=== PATIENT | female | born 1940 | race Caucasian/White ===

== ENCOUNTER → 2017-04-20 | Outpatient (CLI) | payer MEDICARE, BC ==
[2017-04-20 15:50] LABS: Amorphous Sediment,Urine Rare /hpf; Appearance,Urine Clear (Clear); Bilirubin,Urine Negative (Negative); Glucose,Urine (UA) Negative (Negative); Ketones,Urine Negative (Negative); Leukocyte Esterase,Urine Moderate (Negative); Nitrite,Urine Negative (Negative); PH, Urine 6.5 (5.0-8.0); Particle Count 460; Protein,Urine Negative (Negative); Specific Gravity,Urine 1.014 (1.001-1.035); Squamous Epithelial Cell,Urine 1 /hpf (0-4); UA Billing (MACRO vs. MICRO) MICRO; Urobilinogen,Urine <2.0 mg/dL (<2.0); WBC,Urine 11 /hpf (0-5)
[2017-04-20 15:51] LABS: INR 1.1 (<1.2); Prothrombin Time 10.7 sec (9.0-12.0)
[2017-04-20 20:27] LABS: Gliadin AB IgA, Deaminated NEGATIVE (NEGATIVE); Gliadin AB IgG, Deaminated NEGATIVE (NEGATIVE); Gliadin AB IgG, Unit <0.4 U/mL; Tis Transglutaminase IgA Unit <0.5 AI; Tis Transglutaminase IgG Unit <0.8 U/mL
[2017-04-20 21:16] LABS: Egg White IgE <0.10 kU/L; Peanut IgE <0.10 kU/L; Scallop IgE <0.10 kU/L; Soybean IgE <0.10 kU/L
[2017-04-20 21:17] LABS: Clam IgE <0.10 kU/L
[2017-04-21 11:06] LABS: Protein C (Activity) 110 % (70 - 130)
[2017-04-21 11:07] LABS: Free Protein S Antigen 78 % (50 - 147)
[2017-04-22 14:52] LABS: Prothrombin 20210 G/A Mutation Heterozygous
== END | disposition home or self-care (01) ==
LOC: LABWHC1 15:00
PROVIDERS: ATTEND Internal Medicine Critical Care Medicine
DX: I25.10 Atherosclerotic heart disease of native coronary artery without angina pectoris (principal); N39.0 Urinary tract infection, site not specified; I82.409 Acute embolism and thrombosis of unspecified deep veins of unspecified lower extremity
CPT/HCPCS: 36415; 81001; 81240; 81241; 81291; 82784; 82785; 83516; 85300; 85303; 85306; 85610; 85613; 85730; 86003; 86147; 87086

== ENCOUNTER 2018-03-16 04:32 | Emergency (ER) | payer MEDICARE, BC ==
--- NOTE | 2018-03-16 04:34 | ED ---
General Adult HPI - General Stated complaint: cough, chest/throat burning Time Seen by Provider: 03/16/18 04:34 - History of Present Illness Initial comments: Stacy is a 77-year-old female with past medical history listed below who presents the emergency department today for evaluation of a progressively worsening cough and shortness of breath. Patient reports on Thursday of last week she developed some nasal congestion and on productive cough. She reports over the course of the week she has developed progressively more frequent coughing and yesterday started having a productive cough with associated burning pain in her chest. Patient reports that this is similar to previous episodes of pneumonia or bronchitis. The patient contacted her primary care office to be seen but was advised that if she is having shortness of breath and chest pain she needs to be evaluated in the emergency department. Yesterday patient didn't feel that it was needed to come to the emergency department, however throughout the night she continued to have a cough which kept her from sleeping so this morning she decided to come in for evaluation. Patient reports that her cough is minimally productive, but yesterday it seemed more productive of sputum. Cough is constant, but somewhat relieved by nebulizer treatments which she has used 3 times yesterday. Associated with nausea but no vomiting. Burning pain in her chest but no exertional chest pain or palpitations. Patient denies any fevers but does report that she has felt chilled. She denies any abdominal pain or change in bowel or bladder habits. Does have a history of pneumonia and bronchitis in the past for which she was prescribed a nebulizer. She does not have any history of COPD or chronic lung disease, she does not use oxygen or nebulizer therapies regularly. She denies any exertional chest pain or palpitations, She has no cardiac history. - Related Data Previous Rx's Medication Instructions Recorded Albuterol Nebulized [Ventolin 2.5 mg INHALATION Q4H #30 nebu 03/16/18 Nebulized] predniSONE [Deltasone] 40 mg PO DAILY 5 Days #10 tablet 03/16/18 Allergies Allergy/AdvReac Type Severity Reaction Status Date / Time lactose AdvReac Diarrhea Verified 03/16/18 04:44 lidocaine [From Lidoderm] AdvReac Rash/Hives Verified 03/16/18 04:44 phenazopyridine AdvReac Rash/Hives Verified 03/16/18 04:44 [From Pyridium] Sulfa (Sulfonamide AdvReac Rash/Hives Verified 03/16/18 04:44 Antibiotics) sulfamethoxazole AdvReac Rash/Hives Verified 03/16/18 04:44 [From Bactrim] trimethoprim [From Bactrim] AdvReac Rash/Hives Verified 03/16/18 04:44 Review of Systems ROS Statement: Those systems with pertinent positive or pertinent negative responses have been documented in the HPI. ROS Other: All systems not noted in ROS Statement are negative. General Exam Limitations: no limitations General appearance: alert Head exam: Present: atraumatic, normocephalic Eye exam: Present: PERRL ENT exam: Present: normal exam Neck exam: Present: normal inspection Respiratory exam: Present: wheezes Cardiovascular Exam: Present: regular rate, normal rhythm GI/Abdominal exam: Present: soft. Absent: distended Rectal exam: Present: deferred Extremities exam: Present: normal inspection Back exam: Present: normal inspection Neurological exam: Present: alert, oriented X3 Psychiatric exam: Present: normal affect, normal mood Skin exam: Present: warm, dry Course Vital Signs 03/16/18 03/16/18 03/16/18 04:37 06:00 06:10 Temperature 98.3 F Pulse Rate 71 62 66 Respiratory 20 Rate Blood Pressure 160/88 O2 Sat by Pulse 99 Oximetry 03/16/18 06:42 Temperature 97.0 F L Pulse Rate 74 Respiratory 20 Rate Blood Pressure 174/80 O2 Sat by Pulse 99 Oximetry EKG Findings - EKG Comments: EKG Findings:: EKG at 4:50 AM, rate is 66, rhythm is sinus, NC is 204, QRS 112, QTC 452. No acute ST elevations or depressions. Medical Decision Making - Medical Decision Making Patient was seen and evaluated, patient with recent upper respiratory tract infection with worsening cough and wheezing in all lung stevens No cardiac history, no exertional chest pain, no diaphoresis or lightheadedness Labs and imaging were ordered EKG reveals a sinus rhythm with no acute ST elevations or depressions Labs with mild leukocytosis Troponin negative 6 her no evidence of pneumonia Patient with significant improvement in her symptoms after a DuoNeb treatment. Patient states that the albuterol she has a home in 2016 and she would like refill, she does feel significantly improved after the DuoNeb and would like to be discharged home. However she is concerned that she needs her breathing treatments. I advised her that I will prescribe albuterol for home. In addition I will give her a short burst dose of steroids for bronchitis. Considering the patient's advanced age and relative hypoxia on arrival I did offer the patient observation for [id number] DuoNeb's and steroid therapy. However patient declined stating she feels that being at home is better for her. She doesn't want to be in the hospital around sick people. She does feel comfortable being discharged home as this is been persistent for a number of days and is getting better after the DuoNeb. All questions pertaining to care were answered the best my ability patient was discharged home - Lab Data Result diagrams: 03/16/18 05:13 03/16/18 05:13 Lab Results 03/16/18 03/16/18 03/16/18 Range/Units 05:13 05:13 05:13 WBC 12.5 H (3.8-10.6) k/uL RBC 4.52 (3.80-5.40) m/uL Hgb 14.5 (11.4-16.0) gm/dL Hct 43.2 (34.0-46.0) % MCV 95.5 (80.0-100.0) fL MCH 32.2 (25.0-35.0) pg MCHC 33.7 (31.0-37.0) g/dL RDW 12.0 (11.5-15.5) % Plt Count 323 (150-450) k/uL Neutrophils % 82 % Lymphocytes % 10 % Monocytes % 6 % Eosinophils % 1 % Basophils % 0 % Neutrophils # 10.2 H (1.3-7.7) k/uL Lymphocytes # 1.2 (1.0-4.8) k/uL Monocytes # 0.8 (0-1.0) k/uL Eosinophils # 0.1 (0-0.7) k/uL Basophils # 0.0 (0-0.2) k/uL PT (9.0-12.0) sec INR (<1.2) APTT (22.0-30.0) sec Sodium 137 (137-145) mmol/L Potassium 4.2 (3.5-5.1) mmol/L Chloride 104 (98-107) mmol/L Carbon Dioxide 21 L (22-30) mmol/L Anion Gap 12 mmol/L BUN 11 (7-17) mg/dL Creatinine 0.73 (0.52-1.04) mg/dL Est GFR (CKD-EPI)AfAm >90 (>60 ml/min/1.73 sqM) Est GFR (CKD-EPI)NonAf 81 (>60 ml/min/1.73 sqM) Glucose 92 (74-99) mg/dL Calcium 10.6 H (8.4-10.2) mg/dL Magnesium 1.7 (1.6-2.3) mg/dL Troponin I (0.000-0.034) ng/mL NT-Pro-B Natriuret Pep 145 pg/mL 03/16/18 03/16/18 Range/Units 05:13 05:13 WBC (3.8-10.6) k/uL RBC (3.80-5.40) m/uL Hgb (11.4-16.0) gm/dL Hct (34.0-46.0) % MCV (80.0-100.0) fL MCH (25.0-35.0) pg MCHC (31.0-37.0) g/dL RDW (11.5-15.5) % Plt Count (150-450) k/uL Neutrophils % % Lymphocytes % % Monocytes % % Eosinophils % % Basophils % % Neutrophils # (1.3-7.7) k/uL Lymphocytes # (1.0-4.8) k/uL Monocytes # (0-1.0) k/uL Eosinophils # (0-0.7) k/uL Basophils # (0-0.2) k/uL PT 9.8 (9.0-12.0) sec INR 1.0 (<1.2) APTT 23.0 (22.0-30.0) sec Sodium (137-145) mmol/L Potassium (3.5-5.1) mmol/L Chloride (98-107) mmol/L Carbon Dioxide (22-30) mmol/L Anion Gap mmol/L BUN (7-17) mg/dL Creatinine (0.52-1.04) mg/dL Est GFR (CKD-EPI)AfAm (>60 ml/min/1.73 sqM) Est GFR (CKD-EPI)NonAf (>60 ml/min/1.73 sqM) Glucose (74-99) mg/dL Calcium (8.4-10.2) mg/dL Magnesium (1.6-2.3) mg/dL Troponin I <0.012 (0.000-0.034) ng/mL NT-Pro-B Natriuret Pep pg/mL Disposition Clinical Impression: Bronchitis Disposition: HOME SELF-CARE Condition: Good Instructions: Upper Respiratory Infection (ED) Prescriptions: Albuterol Nebulized [Ventolin Nebulized] 2.5 mg INHALATION Q4H #30 nebu predniSONE [Deltasone] 40 mg PO DAILY 5 Days #10 tablet Is patient prescribed a controlled substance at d/c from ED?: No Referrals: None,Stated [Primary Care Provider] - 1-2 days Time of Disposition: 07:11
[2018-03-16 04:43] VITALS: RESP 20
[2018-03-16] MEDS ORDERED: SODIUM CHLORIDE 0.9% 500 ML IV STA (04:46)
[2018-03-16 05:28] LABS: Basophils % (A) 0 %; Eosinophils # (A) 0.1 k/uL (0-0.7); Eosinophils % (A) 1 %; HCT 43.2 % (34.0-46.0); HGB 14.5 gm/dL (11.4-16.0); Lymphocytes # (A) 1.2 k/uL (1.0-4.8); Lymphocytes % (A) 10 %; MCH 32.2 pg (25.0-35.0); MCHC 33.7 g/dL (31.0-37.0); MCV 95.5 fL (80.0-100.0); Mean Platelet Volume 7.3; Monocytes # (A) 0.8 k/uL (0-1.0); Monocytes % (A) 6 %; Neutrophils # (A) 10.2 k/uL (1.3-7.7); Neutrophils % (A) 82 %; Platelet Count 323 k/uL (150-450); RBC 4.52 m/uL (3.80-5.40); WBC 12.5 k/uL (3.8-10.6)
[2018-03-16 05:36] LABS: Anion Gap 12 mmol/L; Blood Urea Nitrogen 11 mg/dL (7-17); Calcium 10.6 mg/dL (8.4-10.2); Carbon Dioxide 21 mmol/L (22-30); Chloride 104 mmol/L (98-107); Glucose 92 mg/dL (74-99); Magnesium 1.7 mg/dL (1.6-2.3); Potassium 4.2 mmol/L (3.5-5.1); Sodium 137 mmol/L (137-145)
--- NOTE | 2018-03-16 05:37 | XR ---
EXAMINATION TYPE: XR chest 2V DATE OF EXAM: 03/16/2018 COMPARISON: 02/05/2010 HISTORY: Cough TECHNIQUE: Frontal and lateral views of the chest are obtained. FINDINGS: There is no heart failure nor confluent pneumonic infiltrate. Costophrenic angles are slim r. There are chest leads. Thoracic aorta is atheromatous. Bony thorax is intact. IMPRESSION: No active cardiopulmonary disease. No change.
[2018-03-16 05:39] LABS: Prothrombin Time 9.8 sec (9.0-12.0)
[2018-03-16] MEDS ORDERED: IPRATROPIUM-ALBUTEROL 3 ML NEB INHALATION STA (05:52)
[2018-03-16 06:52] VITALS: BP 174/80; PULSE 74; TEMP 97
== END 2018-03-16 07:04 | disposition home or self-care (01) ==
LOC: EC 04:32
DX: J40 Bronchitis, not specified as acute or chronic (principal); D72.829 Elevated white blood cell count, unspecified; Z88.2 Allergy status to sulfonamides; Z88.8 Allergy status to other drugs, medicaments and biological substances; Z91.018 Allergy to other foods
CPT/HCPCS: 36415; 71046; 80048; 83735; 83880; 84484; 85025; 85610; 85730; 93005; 94640; 96360; 99284

== ENCOUNTER 2019-02-09 10:12 | Day surgery (SDC) | payer MEDICARE, BC ==
[2019-02-07 13:30] VITALS: BMI 36.6
[~2019-02-09 10:12] MED LIST: LACTATED RINGERS 1,000 ML IV SCH
[2019-02-09 10:36] VITALS: RESP 16; TEMP 96.8
[2019-02-09] MEDS ORDERED: LIDOCAINE 1% 20 ML VIAL (10MG/ML) FOR IV START INTRADERMA ONE (10:42)
[2019-02-09] MEDS ORDERED: PROPOFOL 10 MG/ML 20 ML VIAL IV ONE (11:24)
--- NOTE | 2019-02-09 11:38 | P.PCN ---
Date of Procedure: 02/09/19 Procedure(s) Performed: BRIEF HISTORY: Patient is a 78-year-old, pleasant, white female, scheduled for an upper endoscopy as a part of evaluation of intermittent dysphagia to solids for the last 1 month duration. She has long-standing history of heartburn and takes Zantac as needed. She is scheduled for an upper endoscopy with possible dilation today. PROCEDURE PERFORMED: Esophagogastroduodenoscopy with biopsy and dilation. PREOPERATIVE DIAGNOSIS: Of long-standing history of GERD/and intermittent d ysphagia to solids of 1 month duration. IV sedation per anesthesia. PROCEDURE: After informed consent was obtained, the patient was brought into the endoscopy unit. IV sedation was administered by Anesthesia under continuous monitoring. Initially the Olympus GIF-140 video endoscope was inserted into the mouth. Esophagus intubated without any difficulty. It was gradually advanced into the stomach and duodenum and carefully examined. The bulb and the second part of the duodenum appeared normal. The scope at this time was withdrawn to the stomach, adequately insufflated with air, and upon careful examination, mucosa of the antrum, had mild gastritis and biopsies were done from this area. The body, cardia and the fundus appeared normal. The scope was then withdrawn into the esophagus. The GE junction was located at 39 cm from the incisors. Small hiatal hernia noted. There was a distal esophageal stricture identified and this was dilated using 12-15 mm TTS balloon in sequential fashion for 30 seconds. Also there was circumferential erythema with linear erosions noted in the distal esophagus with superficial erosions consistent with LA grade C reflux esophagitis. The rest of the esophagus appeared normal and the patient tolerated the procedure well. IMPRESSION: 1. This esophageal stricture status post balloon dilation using 12-15 mm TTS balloon as described above. 2. Small hiatal hernia 3. Mild antral gastritis. 4. Circumferential erythema as well as superficial erosions of the distal esophagus consistent with LA grade C reflux esophagitis RECOMMENDATIONS: The findings of this examination were discussed with the patient as well as her family. She will be started on Prilosec 20 mg twice daily to be taken half hour before breakfast and dinnertime and follow a ntireflux measures. She'll be seen in office in 2 months.. She was advised to remain on clear liquid diet today.
[2019-02-09 12:01] VITALS: BP 151/78; PULSE 65
== END 2019-02-09 12:20 | disposition home or self-care (01) ==
LOC: ORWHC2ENDO 10:12
PROVIDERS: ATTEND Internal Medicine Gastroenterology
DX: K21.0 Gastro-esophageal reflux disease with esophagitis (principal); K22.2 Esophageal obstruction; K29.50 Unspecified chronic gastritis without bleeding; K44.9 Diaphragmatic hernia without obstruction or gangrene; Z88.1 Allergy status to other antibiotic agents; Z88.2 Allergy status to sulfonamides; Z88.8 Allergy status to other drugs, medicaments and biological substances; Z86.718 Personal history of other venous thrombosis and embolism; Z79.01 Long term (current) use of anticoagulants
CPT/HCPCS: 43239; 43249; 88305

== ENCOUNTER → 2019-04-04 | Outpatient (CLI) | payer MEDICARE, BC ==
[2019-04-04 13:27] LABS: Appearance,Urine Cloudy (Clear); Bacteria,Urine Many /hpf; Bilirubin,Urine Negative (Negative); Blood,Urine Trace (Negative); Color,Urine Yellow; Glucose,Urine (UA) Negative (Negative); Ketones,Urine Negative (Negative); Leukocyte Esterase,Urine Large (Negative); Nitrite,Urine Positive (Negative); PH, Urine 6.5 (5.0-8.0); Protein,Urine Trace (Negative); Specific Gravity,Urine 1.018 (1.001-1.035); Squamous Epithelial Cell,Urine 1 /hpf (0-4); Urobilinogen,Urine <2.0 mg/dL (<2.0); WBC,Urine >182 /hpf (0-5)
== END | disposition home or self-care (01) ==
LOC: LABWHC1 11:23
PROVIDERS: ATTEND Internal Medicine Critical Care Medicine
DX: R35.0 Frequency of micturition (principal); R30.0 Dysuria
CPT/HCPCS: 81001; 87077; 87086; 87186; 96372; 99214

== ENCOUNTER → 2019-07-11 | Outpatient (CLI) | payer MEDICARE, BC ==
[2019-07-11 11:14] LABS: Basophils % (A) 0 %; Eosinophils # (A) 0.2 k/uL (0-0.7); Eosinophils % (A) 2 %; HCT 37.3 % (34.0-46.0); HGB 12.7 gm/dL (11.4-16.0); Lymphocytes # (A) 1.8 k/uL (1.0-4.8); Lymphocytes % (A) 22 %; MCH 34.8 pg (25.0-35.0); MCHC 33.9 g/dL (31.0-37.0); MCV 102.4 fL (80.0-100.0); Macrocytosis Slight; Mean Platelet Volume 6.8; Monocytes # (A) 0.4 k/uL (0-1.0); Monocytes % (A) 5 %; Neutrophils # (A) 5.6 k/uL (1.3-7.7); Neutrophils % (A) 69 %; Platelet Count 217 k/uL (150-450); RBC 3.65 m/uL (3.80-5.40); RDW 12.3 % (11.5-15.5); WBC 8.1 k/uL (3.8-10.6)
[2019-07-11 11:19] LABS: Potassium 4.5 mmol/L (3.5-5.1)
== END | disposition home or self-care (01) ==
LOC: LABPAT 09:43
PROVIDERS: ATTEND Surgery
DX: Z01.812 Encounter for preprocedural laboratory examination (principal); I74.5 Embolism and thrombosis of iliac artery
CPT/HCPCS: 36415; 80051; 82565; 84520; 85025

== ENCOUNTER → 2019-07-12 | Day surgery (SDC) | payer MEDICARE, BC ==
[2019-07-08 13:06] VITALS: BMI 33.5
[~2019-07-12] MED LIST changes: +ACETAMINOPHEN TAB 500 MG TAB PO PRN; +ALPRAZolam 0.25 MG TAB PO PRN; +ALPRAZolam 0.5 MG TAB PO PRN; +ASPIRIN 325 MG TAB PO STA; +CHLOROPROCAINE 3% 30 MG/ML 20 ML VIAL CAUDALBLCK PRN; +CHLOROPROCAINE 3% 30 MG/ML 20 ML VIAL MISCELLANE ONE; +IOPAMIDOL-250 100ML BTL INTRAARTER ONE; -LACTATED RINGERS 1,000 ML IV SCH; +MIDAZOLAM 2 MG/2 ML VIAL IV ONE; +SODIUM CHLORIDE 0.9% 1,000 ML IV ONE; +SODIUM CHLORIDE 0.9% 1,000 ML in EMPTY BAG 1 BAG IV ONE; +ZOLPIDEM 5 MG TAB PO PRN; +fentaNYL (PF) 50 MCG/ML 2 ML AMP IV ONE
[2019-07-12 08:26] VITALS: RESP 16; TEMP 97.7
--- NOTE | 2019-07-12 10:05 | P.OP ---
Date of Procedure: 07/12/19 Description of Procedure: Preoperative diagnosis: Severe claudication right lower extremity, second toe wound Postoperative diagnosis: Same Procedure: Ultrasound-guided left common femoral artery access, aortogram with runoffs, 17 minutes of moderate conscious sedation Surgeon: Kareen Hicks D.O. EBL: Minimal Drains: None Complications: none Condition: []Stable to recovery Operative indication and findings: the patient is a 79-year-old female who has been having increasing right lower extremity pain when ambulating. She can walk about a block prior to her leg pain. She is able to stop and then it improved. She also has a wound on her second toe from pressure from her great toe, this is going on for approximately 1 year without any healing. She had ankle- brachial indices outpatient on the right measured 0.49 and noncompressible on the left Procedure in detail: [ The patient was taken to the operative suite and placed in supine position the bilateral groins were prepped and draped in usual sterile fashion. A procedural timeout was performed, all parties are in agreement. Was Utilized to the Left Common Femoral Artery Was Identified. The Skin Overlying Was Anesthetized with Local. The ultrasound was utilized and a micropuncture access needle cannulated the common femoral artery. Seldinger technique was utilized to place a 5- [place] Island[place] sheath. A wire and pigtail catheter were placed. An aortogram was performed. Bilateral lower extremity runoffs were performed. The wires and catheters were removed. The sheath was removed and pressure was held until hemostasis was adequate. The aorta was normal course and caliber. Solitary renal arteries bilaterally the bilateral iliac arteries are patent without any evidence of significant disease. On the right the common, internal and external iliac arteries are patent without significant disease. The common femoral, deep femoral and superficial femoral arteries are patent at their takeoff. At the level of the abductor canal there is significant greater than 80% narrowing in multiple areas there is three-vessel runoff below the knee although diminutive On the left the common, internal, next sternal iliac arteries are patent without evidence of significant disease. The common femoral, deep femoral and superficial femoral artery are patent without significant disease. There are multiple areas of mild to moderate stenosis of the course of the superficial femoral artery. The ET is occluded shortly after its takeoff but then reconstituted via collaterals. The peroneal and posterior tibial arteries are patent. Plan - Discharge Summary Discharge Rx Participant: Yes New Discharge Prescriptions: No Action ALPRAZolam [Xanax] 0.5 mg PO TID PRN PRN Reason: Anxiety HYDROcodone/APAP 7.5-325MG [[place] 7.5-325] 1 tab PO Q6HR PRN PRN Reason: Pain Ranitidine HCl [Zantac] 150 mg PO DAILY Diphenox-Atrop 2.5-0.025 mg [Lomotil] 1 tab PO BID Amitriptyline HCl 50 mg PO HS PRN PRN Reason: Anxiety Rivaroxaban [Xarelto] 20 mg PO 1700 Cranberry Fruit Extract [Cranberry] 450 mg PO BID Omeprazole [PriLOSEC] 20 mg PO AC-BRKFST Atorvastatin [Lipitor] 40 mg PO HS Aspirin 81 mg PO ONCE Discharge Medication List ALPRAZolam [Xanax] 0.5 mg PO TID PRN 09/23/18 [History] Amitriptyline HCl 50 mg PO HS PRN 09/23/18 [History] Diphenox-Atrop 2.5-0.025 mg [Lomotil] 1 tab PO BID 09/23/18 [History] HYDROcodone/APAP 7.5-325MG [[place] 7.5-325] 1 tab PO Q6HR PRN 09/23/18 [History] Ranitidine HCl [Zantac] 150 mg PO DAILY 09/23/18 [History] Rivaroxaban [Xarelto] 20 mg PO 1700 09/23/18 [History] Cranberry Fruit Extract [Cranberry] 450 mg PO BID 02/07/19 [History] Atorvastatin [Lipitor] 40 mg PO HS 07/08/19 [History] Omeprazole [PriLOSEC] 20 mg PO AC-BRKFST 07/08/19 [History] Aspirin 81 mg PO ONCE 07/12/19 [History]
--- NOTE | 2019-07-12 11:27 | IR ---
Fluoroscopy HISTORY: Pain in right leg 0.4 minutes fluoroscopy time supplied to the referring clinician. 58 intraoperative C-arm images doc ument the procedure. See dictated report from vascular surgery.
[2019-07-12 15:37] VITALS: BP 148/68
[2019-07-12 16:16] VITALS: PULSE 72
== END ==
LOC: CATHCVL 07:48
PROVIDERS: ATTEND Surgery
DX: I70.213 Atherosclerosis of native arteries of extremities with intermittent claudication, bilateral legs (principal); Z79.01 Long term (current) use of anticoagulants; Z79.82 Long term (current) use of aspirin; Z79.899 Other long term (current) drug therapy; Z88.2 Allergy status to sulfonamides; Z88.8 Allergy status to other drugs, medicaments and biological substances; Z88.1 Allergy status to other antibiotic agents; Z91.011 Allergy to milk products; Z90.49 Acquired absence of other specified parts of digestive tract; Z82.49 Family history of ischemic heart disease and other diseases of the circulatory system; Z83.511 Family history of glaucoma; Z81.8 Family history of other mental and behavioral disorders; Z85.828 Personal history of other malignant neoplasm of skin; D68.59 Other primary thrombophilia
CPT/HCPCS: 36200; 75625; 75716; 76937; C1894; C1769 ×4; J2400; J2250; J3010; Q9966

== ENCOUNTER → 2019-08-08 | Outpatient (CLI) | payer MEDICARE, BC ==
--- NOTE | 2019-08-08 09:07 | CT ---
EXAMINATION TYPE: CT angio neck DATE OF EXAM: 08/08/2019 COMPARISON: None HISTORY: Carotid Stenosis CT DLP: 246.3 mGycm CONTRAST: CTA cervical carotids is performed and with IV Contrast, patient injected with 65 mL of Isovue 370. Contrast CTA of the cervical carotids was performed 3-D reconstruction imaging obtained at a separate workstation. Right carotid system: Mild plaque is seen of the right common carotid artery. There is mild plaque a lso noted at the carotid bulb. Moderate calcified plaque at the proximal right ICA resulting in elisa nal narrowing of less than 50%. ECA is patent. Right vertebral artery appears unremarkable. Note is made of retropharyngeal course of right internal carotid artery Left carotid system: Mild plaque is seen of the left common carotid artery. There is moderate to sev ere plaque also noted at the carotid bulb with luminal narrowing estimated at 80%. Additional calcifi c plaque proximal left ICA resulting in approximately 50% diameter reduction. ECA is patent. Left will tebral artery appears unremarkable. IMPRESSION: 1. Estimated diameter reduction Right ICA less than 50% 2. Estimated diameter reduction Left ICA approximately 80%
== END | disposition home or self-care (01) ==
LOC: RADCTMAIN 07:31
PROVIDERS: ATTEND Surgery
DX: I65.29 Occlusion and stenosis of unspecified carotid artery (principal)
CPT/HCPCS: 82565; 84520; 70498; 36415; Q9967

== ENCOUNTER → 2019-09-09 | Outpatient (CLI) | payer MEDICARE, BC ==
[2019-09-09 09:55] LABS: Basophils % (A) 0 %; Eosinophils # (A) 0.6 k/uL (0-0.7); Eosinophils % (A) 6 %; HCT 42.5 % (34.0-46.0); HGB 13.3 gm/dL (11.4-16.0); Lymphocytes # (A) 1.5 k/uL (1.0-4.8); Lymphocytes % (A) 16 %; MCH 32.4 pg (25.0-35.0); MCHC 31.4 g/dL (31.0-37.0); Macrocytosis Slight; Mean Platelet Volume 7.8; Monocytes # (A) 0.5 k/uL (0-1.0); Monocytes % (A) 5 %; Neutrophils # (A) 6.6 k/uL (1.3-7.7); Neutrophils % (A) 71 %; Platelet Count 270 k/uL (150-450); RBC 4.12 m/uL (3.80-5.40); RDW 12.1 % (11.5-15.5); WBC 9.3 k/uL (3.8-10.6)
[2019-09-09 10:02] LABS: African American GFR (CKD) >90 (>60 ml/min/1.73 sqM); Anion Gap 6 mmol/L; Blood Urea Nitrogen 27 mg/dL (7-17); Carbon Dioxide 29 mmol/L (22-30); Chloride 107 mmol/L (98-107); Non-African American GFR(CKD) 82 (>60 ml/min/1.73 sqM); Potassium 4.6 mmol/L (3.5-5.1); Sodium 142 mmol/L (137-145)
[2019-09-09 13:18] LABS: Appearance,Urine Clear (Clear); Bilirubin,Urine Negative (Negative); Blood,Urine Negative (Negative); Color,Urine Light Yellow; Glucose,Urine (UA) Negative (Negative); Ketones,Urine Negative (Negative); Leukocyte Esterase,Urine Negative (Negative); Nitrite,Urine Negative (Negative); Protein,Urine Negative (Negative); Specific Gravity,Urine 1.011 (1.001-1.035); Urobilinogen,Urine <2.0 mg/dL (<2.0)
== END | disposition home or self-care (01) ==
LOC: LABPAT 08:52
PROVIDERS: ATTEND Surgery
DX: Z01.812 Encounter for preprocedural laboratory examination (principal); I65.22 Occlusion and stenosis of left carotid artery
CPT/HCPCS: 36415; 80051; 81003; 82565; 84520; 85025; 86850; 86900; 86901

== ENCOUNTER 2019-09-20 07:02 | Inpatient (IN) | payer MEDICARE, BC ==
[2019-09-12 16:50] VITALS: BMI 30.3
[~2019-09-20 07:02] MED LIST changes: -ACETAMINOPHEN TAB 500 MG TAB PO PRN; -ALPRAZolam 0.25 MG TAB PO PRN; -ALPRAZolam 0.5 MG TAB PO PRN; -ASPIRIN 325 MG TAB PO STA; -CHLOROPROCAINE 3% 30 MG/ML 20 ML VIAL CAUDALBLCK PRN; -CHLOROPROCAINE 3% 30 MG/ML 20 ML VIAL MISCELLANE ONE; +CLINDAMYCIN 900 MG in DEXTROSE 5% IN WATER 50 ML IVPB ONE; +DEXAMETHASONE SOD PHOSPHATE 10 MG/ML 1 ML VIAL IV ONE; -IOPAMIDOL-250 100ML BTL INTRAARTER ONE; +LIDOCAINE 1% 20 ML VIAL (10MG/ML) FOR IV START INTRADERMA PRN; -MIDAZOLAM 2 MG/2 ML VIAL IV ONE; +MORPHINE SULFATE 2 MG/ML SYRINGE IV PRN; +ONDANSETRON 4 MG/2 ML VIAL IVP ONE; -SODIUM CHLORIDE 0.9% 1,000 ML IV ONE; -SODIUM CHLORIDE 0.9% 1,000 ML in EMPTY BAG 1 BAG IV ONE; -ZOLPIDEM 5 MG TAB PO PRN; -fentaNYL (PF) 50 MCG/ML 2 ML AMP IV ONE
[2019-09-20] MEDS: LACTATED RINGERS 1,000 ML IV SCH ×2 (08:13→09:09)
[2019-09-20] MEDS ORDERED: SUCCINYLCHOLINE CHLORIDE 100 MG/5 ML SYR IV ONE (09:05)
[2019-09-20] MEDS ORDERED: LABETALOL 5 MG/ML VIAL MDV ONE (09:05)
[2019-09-20] MEDS ORDERED: fentaNYL (PF) 50 MCG/ML 2 ML AMP ONE (09:05)
[2019-09-20] MEDS ORDERED: METOPROLOL TARTRATE 5 MG/5 ML VIAL IVP ONE (09:05)
[2019-09-20] MEDS ORDERED: PROPOFOL 10 MG/ML 20 ML VIAL IV ONE (09:05)
[2019-09-20] MEDS ORDERED: PHENYLEPHRINE-0.9% NACL SYG 1 MG/10 ML SYRINGE ONE (09:05)
[2019-09-20] MEDS ORDERED: HEPARIN SODIUM,PORCINE 10,000 UNIT/ML 1 ML VIAL ONE (09:05)
[2019-09-20] MEDS ORDERED: PROTAMINE SULFATE 10 MG/ML 5 ML VIAL IV ONE (09:05)
[2019-09-20] MEDS ORDERED: MIDAZOLAM 2 MG/2 ML VIAL ONE (09:05)
[2019-09-20] MEDS ORDERED: ROCURONIUM BROMIDE 10 MG/ML 10 ML VIAL IV ONE (09:05)
[2019-09-20] MEDS ORDERED: ePHEDrine SULFATE/0.9% NACL/PF 50 MG/5 ML SYRINGE IV ONE (09:05)
[2019-09-20] MEDS ORDERED: THROMBIN (BOVINE) 5,000 UNIT VIAL TOPICAL ONE (09:49)
[2019-09-20] MEDS ORDERED: HEPARIN SODIUM (1,000 UNIT/ML) 2,000 UNIT in SODIUM CHLORIDE 0.9% 1,000 ML IRRIGATION ONE (09:50)
[2019-09-20] MEDS ORDERED: GELATIN SPONGE,ABSORB (LARGE) 1 EACH SPONGE TOPICAL ONE (11:18)
[2019-09-20] MEDS ORDERED: TRIMETHOBENZAMIDE 100 MG/ML 2 ML VIAL IM PRN (11:44)
[2019-09-20] MEDS ORDERED: MORPHINE SULFATE 2 MG/ML SYRINGE IVP PRN (11:44)
[2019-09-20] MEDS ORDERED: MAG HYDROX/AL HYDROX/SIMETH 30 ML CUP PO PRN (11:44)
--- NOTE | 2019-09-20 11:54 | P.OP ---
Date of Procedure: 09/20/19 Description of Procedure: Date of Procedure: [09/20/2019] Preoperative Diagnosis: [Left] Internal carotid artery stenosis Postoperative Diagnosis: Same Procedure(s) Performed: Left[] carotid endarterectomy with patch angioplasty Anesthesia: WERNER Surgeon: Kareen Hicks DO Estimated Blood Loss (ml): [75 mL] IV Fluids: [See records] Urine Output: [See anesthesia notes] Specimen: [Left carotid plaque] Condition: stable Disposition: PACU Indications for Procedure: [The patient is a 79 old female with high-grade left ICA stenosis and some intermittent weakness and numbness to her right lower extremity. She initially was planned to undergo a TCAR but could not tolerate dual antiplatelet therapy required. She has been maintained on aspirin. Risks and benefits of going forward with a carotid endarterectomy were discussed with the patient. She seemingly understood and was willing to proceed.] Description of Procedure: After written informed consent was obtained the patient all risks benefits and competitions were described the patient is brought to the operative suite and laid in a supine position. The area of the neck was prepped and draped in usual sterile fashion after appropriate anesthetic was performed per the anesthesiologist. A timeout was performed in normal fashion antibiotics were administered prior to incision. An oblique incision was then created just anterior to the sternocleidomastoid musculature with a 10 blade scalpel and dissection was carried down to the carotid sheath. The carotid sheath was then entered after facial vein was located and suture ligated in normal fashion. The common carotid, internal carotid, external carotid and superior thyroid arteries were located and dissected free in a meticulous fashion circumferentially and controlled with vessel loops. Attention was then placed to locating the vagus nerve as well as hypoglossal nerve which were both spared. Once controlled patient was administered heparin and followed with ACTs for appropriate heparinization. Once ACT was above 200 the proximal and distal aspects of the dissection were th en controlled with vascular clamps. Arteriotomy was then created with 11 blade scalpel and extended with Gabriel scissors. Utilizing pressure tubing stump pressures were obtained and were [54 mmHg]. No shunt was required and endarterectomy was then performed with a [place] and elevator. The plaque was then feathered at the distal aspect and the internal carotid artery and removed. The area was copiously irrigated with heparinized saline and all free debris was removed. A 7-0 Prolene suture was then placed to tack the distal aspect of the dissection at the internal carotid artery. A 0.8 x 8 cm bovine pericardial patch was then chosen and patch angioplasty was performed with 6-0 Prolene suture in a running fashion. Prior to last sutures being placed the inflow was released flushing any free debris out of the patch. This was reclamped and the internal carotid artery was released revealing good brisk flow and was once again reclamped. The external carotid and superior thyroid artery were then released followed by the common carotid artery to allow any free debris to be flushed into the external system. Final sutures were placed and secured. Internal carotid artery control was then released. Good pulsatile flow was noted through the patch and a Doppler was utilized demonstrating good brisk flow into the internal, external carotid arteries without any signs of obstruction. Hemostasis was then assured with [thrombin and Gelfoam]. A 10-[place] DAYNA drain was then placed in normal fashion and secured with 3-0 nylon suture. The incision was then closed in a multilayer fashion after hemostasis was assured. The skin was then cleansed and dressings were placed. Patient tolerated the procedure well and was following commands and moving all extremities. Patient was then sent to PACU for recovery.
[2019-09-20] MEDS ORDERED: PHENYLEPHRINE 40 MG in SODIUM CHLORIDE 0.9% 250 ML IV SCH (12:30)
[2019-09-20] MEDS ORDERED: ACETAMINOPHEN IV (For NPO) 1,000 MG/100 ML VIAL IVPB ONE (12:46)
[2019-09-20 13:54] LABS: Glucose,Whole Blood 129 mg/dL (75-99)
[2019-09-20] MEDS: SODIUM CHLORIDE 0.9% 1,000 ML IV SCH (14:40)
--- NOTE | 2019-09-20 15:32 | P.CNPUL ---
<Kisha Jaquez M - Last Filed: 09/20/19 14:59> History of Present Illness Consult date: 09/20/19 Requesting physician: Kareen Hicks Reason for consult: other Chief complaint: Dizziness, falls, left carotid stenosis History of present illness: 79-year-old white female patient follows with Dr. 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 She was also experiencing cold sensation in her right foot, and developed a small wound on the right second toe that was poorly healing, she was seen by vascular surgeon and was found to have peripheral arterial disease. In the last several weeks patient has also been experiencing increased dizziness, and falls. CT angios of the neck was completed showing right ICA calcified plaque of 50%, and estimated diameter reduction of the left ICA approximately 80%. Patient was scheduled for elective left carotid endarterectomy on 09/12/[address] Hicks. Patient tolerated procedure well, she is being seen in the postoperative period in the intensive care unit, she is resting comfortably in bed, does have a mild headache in her left posterior neck area, and there is a mild facial weakness, involving left corner of her mouth, CT surgery is aware, left neck incision is covered with a surgical dressing, DAYNA drain is in place compressed and draining minimal amount of serosanguineous output. Hemodynamically patient is stable. She is on 2 L of oxygen with a pulse ox of 96%, afebrile, sinus mechanism with a rate of 96 BPM. Review of Systems All systems: negative Constitutional: Denies chills, Denies fever Eyes: denies blurred vision, denies pain Ears, nose, mouth and throat: Denies headache, Denies sore throat Cardiovascular: Denies chest pain, Denies shortness of breath Respiratory: Denies cough Gastrointestinal: Denies abdominal pain, Denies diarrhea, Denies nausea, Denies vomiting Genitourinary: Denies dysuria, Denies hematuria Musculoskeletal: Denies myalgias Integumentary: Denies pruritus, Denies rash Neurological: Reports paresthesias, Denies numbness, Denies weakness Psychiatric: Denies anxiety, Denies depression Endocrine: Denies fatigue, Denies weight change Past Medical History Past Medical History: Blood Disorder, Cancer, GERD/Reflux, GI Bleed, Memory Impairment, Osteoarthritis (OA), Vascular Disorder Additional Past Medical History / Comment(s): Scoliosis, IBS, varicose veins, poor circulation rt leg, gets numbness in rt foot/leg, "MTHFR, PROTHROMBIN, CINCALATIRS", having dizzy spells and balance problems, falling often. Recent skin CA exc lip. History of Any Multi-Drug Resistant Organisms: None Reported Past Surgical History: Appendectomy, Cholecystectomy, Tonsillectomy Additional Past Surgical History / Comment(s): Surgery for bleeding ulcers 2009, Angiogram Past Anesthesia/Blood Transfusion Reactions: No Reported Reaction Smoking Status: Never smoker - Past Family History Daughter(s) Family Medical History: Cancer Father Brother(s) Family Medical History: Cancer Medications and Allergies Home Medications Medication Instructions Recorded Confirmed Type ALPRAZolam [Xanax] 0.5 mg PO HS PRN 09/23/18 09/12/19 History Amitriptyline HCl 50 mg PO HS PRN 09/23/18 09/12/19 History HYDROcodone/APAP 7.5-325MG [[place] 1 tab PO Q6HR PRN 09/23/18 09/12/19 History 7.5-325] Ranitidine HCl [Zantac] 150 mg PO DAILY PRN 09/23/18 09/12/19 History Rivaroxaban [Xarelto] 20 mg PO 1700 09/23/18 09/12/19 History Cranberry Fruit Extract [Cranberry] 450 mg PO BID 02/07/19 09/12/19 History Atorvastatin [Lipitor] 40 mg PO HS 07/08/19 09/12/19 History Omeprazole [PriLOSEC] 20 mg PO AC-BRKFST 07/08/19 09/12/19 History Aspirin 81 mg PO DAILY 07/12/19 09/12/19 History amLODIPine [Norvasc] 5 mg PO DAILY 09/12/19 09/12/19 History Allergies Allergy/AdvReac Type Severity Reaction Status Date / Time cephalexin Allergy Rash/Hives, Verified 09/20/19 07:56 stomach upset levofloxacin Allergy Anaphylaxis Verified 09/20/19 07:56 prednisone Allergy Anaphylaxis Verified 09/20/19 07:56 trimethoprim [From Bactrim] Allergy Rash/Hives Verified 09/20/19 07:56 lactose AdvReac Diarrhea Verified 09/20/19 07:56 lidocaine [From Lidoderm] AdvReac Rash/Hives Verified 09/20/19 07:56 phenazopyridine AdvReac Rash/Hives Verified 09/20/19 07:56 [From Pyridium] Sulfa (Sulfonamide AdvReac Rash/Hives Verified 09/20/19 07:56 Antibiotics) sulfamethoxazole AdvReac Rash/Hives Verified 09/20/19 07:56 [From Bactrim] Physical Exam Vitals: Vital Signs Temp Pulse Pulse Pulse Resp BP BP 09/20/19 14:40 58 L 14 09/20/19 14:30 62 18 09/20/19 14:20 54 L 16 09/20/19 14:10 57 L 16 09/20/19 14:00 99 141/52 09/20/19 13:50 99 16 09/20/19 13:45 97.5 F L 58 L 16 09/20/19 13:24 56 L 16 109/56 09/20/19 13:17 55 L 16 162/61 09/20/19 13:03 61 14 100/52 09/20/19 12:45 60 16 114/58 09/20/19 12:35 60 16 104/55 09/20/19 12:20 60 16 106/51 09/20/19 12:05 62 16 110/55 09/20/19 11:50 97.1 F L 62 16 111/54 09/20/19 07:52 98.2 F 92 16 167/82 BP Pulse Ox 09/20/19 14:40 97 09/20/19 14:30 96 09/20/19 14:20 95 09/20/19 14:10 96 09/20/19 14:00 96 09/20/19 13:50 96 09/20/19 13:45 155/69 09/20/19 13:24 121/38 97 09/20/19 13:17 123/39 96 09/20/19 13:03 108/35 94 L 09/20/19 12:45 110/36 96 09/20/19 12:35 108/44 96 09/20/19 12:20 114/42 96 09/20/19 12:05 115/46 97 09/20/19 11:50 116/36 96 09/20/19 07:52 100 Intake and Output 09/19/19 09/20/19 09/20/19 22:59 06:59 14:59 Intake Total 979 Output Total 445 Balance 534 Intake: IV 979 Lactated Ringers 1,000 ml 20 @ 20 mls/hr IV .Q24H [facility] Rx#:[id number] Output: Urine 430 Estimated Blood Loss 15 Other: Weight 70.5 kg ABP, PAP, CO, CI - Last 8 Hours Arterial Blood Pressure 135/49 Arterial Blood Pressure 135/47 Arterial Blood Pressure 131/46 Arterial Blood Pressure 140/48 Arterial Blood Pressure 159/55 GENERAL EXAM: Alert, very pleasant, 79-year-old white female, in 2 L of oxygen with pulse ox of 96%, comfortable in no apparent distress. HEAD: Normocephalic/atraumatic. EYES: Normal reaction of pupils, equal size. Conjunctiva pink, sclera white. NOSE: Clear with pink turbinates. THROAT: No erythema or exudates. NECK: No masses, no JVD, no thyroid enlargement, no adenopathy. Left neck incision is clean dry and intact, with a surgical dressing, trachea midline, no hematoma, incision is soft CHEST: No chest wall deformity. Symmetrical expansion. LUNGS: Equal air entry with no crackles, wheeze, rhonchi or dullness. CVS: Regular rate and rhythm, normal S1 and S2, no gallops, no murmurs, no rubs ABDOMEN: Soft, nontender. No hepatosplenomegaly, normal bowel sounds, no guarding or rigidity. EXTREMITIES: No clubbing, no edema, no cyanosis, 2+ pulses and upper and lower extremities. MUSCULOSKELETAL: Muscle strength and tone normal. SPINE: No scoliosis or deformity SKIN: No rashes CENTRAL NERVOUS SYSTEM: Alert and oriented -3. Slight left corner of mouth droop. No focal deficits, tone is normal in all 4 extremities. PSYCHIATRIC: Alert and oriented -3. Appropriate affect. Intact judgment and insight. Results - Laboratory Findings Abnormal lab findings: Abnormal Labs 09/20/19 13:53 POC Glucose (mg/dL) 129 H Assessment and Plan Plan: Assessment: #1. Left total carotid artery stenosis of 80%, status post left carotid endarterectomy and patch angioplasty, postop day 0 #2. Peripheral arterial disease #3. History of recent falls and dizziness #4. History of hypertension #5. History of hypercoagulable state, MTHFR gene mutation, on the Route toe #6. Previous history of pulmonary embolism and DVT #7. Anxiety #8. Osteoarthritis #9. Irritable bowel syndrome #10. Lifetime nonsmoker Plan: Continue close hemodynamic monitoring, continue frequent neurologic assessments. Hemodynamically patient is stable, she is complaining of some mild neck pain. Antibiotics GI and DVT prophylaxis per CT surgery. Continue IV fluids, patient is tolerating clear liquids, advance as tolerated, repeat blood work in the morning, we'll continue to closely follow I performed a history & physical examination of the patient and discussed their management with my nurse practitioner, Kisha Jaquez. I reviewed the nurse practitioner's note and agree with the documented findings and plan of care. Lung sounds are positive for clear breath sounds. The findings and the impression was discussed with the patient. I attest to the documentation by the nurse practitioner. Time with Patient: Greater than 30 <Sara Ramos - Last Filed: 09/20/19 19:02> Physical Exam Vitals: Vital Signs Temp Pulse Pulse Pulse Resp BP BP 09/20/19 19:00 52 L 14 09/20/19 18:50 54 L 15 09/20/19 18:40 58 L 20 09/20/19 18:30 56 L 22 09/20/19 18:20 59 L 22 09/20/19 18:10 54 L 17 09/20/19 18:00 59 L 20 09/20/19 17:50 58 L 14 09/20/19 17:40 56 L 18 09/20/19 17:30 57 L 27 H 09/20/19 17:20 58 L 18 09/20/19 17:10 57 L 29 H 09/20/19 17:00 51 L 16 09/20/19 16:50 51 L 16 09/20/19 16:40 51 L 17 09/20/19 16:30 48 L 18 09/20/19 16:20 50 L 20 09/20/19 16:10 51 L 11 L 162/66 09/20/19 16:00 97.3 F L 56 L 20 09/20/19 15:50 50 L 16 09/20/19 15:40 50 L 14 09/20/19 15:30 53 L 16 09/20/19 15:20 53 L 18 09/20/19 15:10 51 L 16 09/20/19 15:00 56 L 21 09/20/19 14:50 56 L 20 09/20/19 14:40 58 L 14 09/20/19 14:30 62 18 09/20/19 14:20 54 L 16 09/20/19 14:10 57 L 16 09/20/19 14:00 99 141/52 09/20/19 13:50 99 16 09/20/19 13:45 97.5 F L 58 L 16 09/20/19 13:24 56 L 16 109/56 09/20/19 13:17 55 L 16 162/61 09/20/19 13:03 61 14 100/52 09/20/19 12:45 60 16 114/58 09/20/19 12:35 60 16 104/55 09/20/19 12:20 60 16 106/51 09/20/19 12:05 62 16 110/55 09/20/19 11:50 97.1 F L 62 16 111/54 09/20/19 07:52 98.2 F 92 16 167/82 BP Pulse Ox 09/20/19 19:00 96 09/20/19 18:50 96 09/20/19 18:40 96 09/20/19 18:30 96 09/20/19 18:20 96 09/20/19 18:10 96 09/20/19 18:00 96 09/20/19 17:50 97 09/20/19 17:40 97 09/20/19 17:30 96 09/20/19 17:20 97 09/20/19 17:10 96 09/20/19 17:00 97 09/20/19 16:50 97 09/20/19 16:40 97 09/20/19 16:30 97 09/20/19 16:20 96 09/20/19 16:10 96 09/20/19 16:00 96 09/20/19 15:50 97 09/20/19 15:40 97 09/20/19 15:30 97 09/20/19 15:20 97 09/20/19 15:10 98 09/20/19 15:00 97 09/20/19 14:50 97 09/20/19 14:40 97 09/20/19 14:30 96 09/20/19 14:20 95 09/20/19 14:10 96 09/20/19 14:00 96 09/20/19 13:50 96 09/20/19 13:45 155/69 09/20/19 13:24 121/38 97 09/20/19 13:17 123/39 96 09/20/19 13:03 108/35 94 L 09/20/19 12:45 110/36 96 09/20/19 12:35 108/44 96 09/20/19 12:20 114/42 96 09/20/19 12:05 115/46 97 09/20/19 11:50 116/36 96 09/20/19 07:52 100 Intake and Output 09/20/19 09/20/19 09/20/19 06:59 14:59 22:59 Intake Total 979 380 Output Total 445 190 Balance 534 190 Intake: IV 979 380 Lactated Ringers 1,000 ml 20 80 @ 20 mls/hr IV .Q24H [facility] Rx#:[id number] Sodium Chloride 0.9% 1, 300 000 ml @ 75 mls/hr IV . [id number] [facility] Rx#:[id number] Output: Urine 430 190 Estimated Blood Loss 15 Other: Voiding Method Indwelling Catheter Weight 70.5 kg ABP, PAP, CO, CI - Last 8 Hours Arterial Blood Pressure 124/42 Arterial Blood Pressure 131/43 Arterial Blood Pressure 122/42 Arterial Blood Pressure 120/43 Arterial Blood Pressure 114/46 Arterial Blood Pressure 129/44 Arterial Blood Pressure 114/44 Arterial Blood Pressure 124/36 Arterial Blood Pressure 128/45 Arterial Blood Pressure 120/45 Arterial Blood Pressure 117/45 Arterial Blood Pressure 135/52 Arterial Blood Pressure 149/48 Arterial Blood Pressure 139/47 Arterial Blood Pressure 144/46 Arterial Blood Pressure 142/47 Arterial Blood Pressure 134/46 Arterial Blood Pressure 136/42 Arterial Blood Pressure 112/42 Arterial Blood Pressure 129/39 Arterial Blood Pressure 122/39 Arterial Blood Pressure 124/42 Arterial Blood Pressure 133/44 Arterial Blood Pressure 137/44 Arterial Blood Pressure 135/54 Arterial Blood Pressure 142/48 Arterial Blood Pressure 135/49 Arterial Blood Pressure 135/47 Arterial Blood Pressure 131/46 Arterial Blood Pressure 140/48 Arterial Blood Pressure 159/55 Results - Laboratory Findings Abnormal lab findings: Abnormal Labs 09/20/19 13:53 POC Glucose (mg/dL) 129 H
[2019-09-20] MEDS ORDERED: diphenhydrAMINE 25 MG CAP PO PRN (16:53)
[2019-09-20] MEDS: HYDROcodone/APAP 7.5-325MG 1 EACH TAB PO PRN ×2 (17:07→23:06)
[2019-09-21] MEDS ORDERED: NOREPINEPHRINE 4 MG in SODIUM CHLORIDE 0.9% 250 ML IV SCH (01:00)
[2019-09-21] MEDS: HEPARIN SODIUM,PORCINE 5,000 UNIT/ML 1 ML VIAL SQ SCH ×2 (01:36→08:13)
[2019-09-21] MEDS: SODIUM CHLORIDE 0.9% 1,000 ML IV SCH (03:53)
[2019-09-21] MEDS: HYDROcodone/APAP 7.5-325MG 1 EACH TAB PO PRN ×2 (06:42→13:11)
[2019-09-21 07:39] LABS: African American GFR (CKD) >90 (>60 ml/min/1.73 sqM); Anion Gap 14 mmol/L; Blood Urea Nitrogen 25 mg/dL (7-17); Calcium 8.6 mg/dL (8.4-10.2); Carbon Dioxide 18 mmol/L (22-30); Chloride 107 mmol/L (98-107); Glucose 119 mg/dL (74-99); Non-African American GFR(CKD) 79 (>60 ml/min/1.73 sqM); Potassium 4.1 mmol/L (3.5-5.1); Sodium 139 mmol/L (137-145)
[2019-09-21] MEDS ORDERED: ASPIRIN 81 MG PO SCH (09:00)
--- NOTE | 2019-09-21 09:08 | P.PN ---
Subjective Progress Note Date: 09/21/19 Principal diagnosis: Left carotid endarterectomy 79-year-old white female patient follows with Dr. 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 She was also experiencing cold sensation in her right foot, and developed a small wound on the right second toe that was poorly healing, she was seen by vascular surgeon and was found to have peripheral arterial disease. In the last several weeks patient has also been experiencing increased dizziness, and falls. CT angios of the neck was completed showing right ICA calcified plaque of 50%, and estimated diameter reduction of the left ICA approximately 80%. Patient was scheduled for elective left carotid endarterectomy on 09/12/[address] Hicks. Patient tolerated procedure well, she is being seen in the postoperative period in the intensive care unit, she is resting comfortably in bed, does have a mild headache in her left posterior neck area, and there is a mild facial weakness, involving left corner of her mouth, CT surgery is aware, left neck incision is covered with a surgical dressing, DAYNA drain is in place compressed and draining minimal amount of serosanguineous output. Hemodynamically patient is stable. She is on 2 L of oxygen with a pulse ox of 96%, afebrile, sinus mechanism with a rate of 96 BPM. On 09/21/2019 patient seen in follow-up in intensive care and, this is postoperative day 1, status post left carotid endarterectomy with patch angioplasty. Patient is doing well, hemodynamically she stable, in sinus mechanism on the monitor, she couldn't sleep well last night, still has mild neck discomfort in the posterior occipital area, neurologically patient is unchanged, she is awake and alert and oriented 3, motor strength and sensation are equal bilaterally, very minimal left corner of mouth droop. No acute events overnight, patient is on aspirin. She is on subcutaneous heparin. Xarelto is on hold, left neck incision is clean dry and intact soft, DAYNA drain was discontinued this morning. Objective - Vital Signs Vital signs: Vital Signs Temp 98.1 F 09/21/19 04:00 Pulse 48 L 09/21/19 07:00 Resp 16 09/21/19 07:00 BP 160/60 09/21/19 07:00 Pulse Ox 94 L 09/21/19 07:00 Intake & Output 09/20/19 09/21/19 09/21/19 18:59 06:59 18:59 Intake Total 1264 1150.834 104.088 Output Total 595 840 145 Balance 669 310.834 -40.912 Weight 70.5 kg 78 kg Intake: IV 1264 1140 95 Lactated Ringers 1,000 ml 80 240 20 @ 20 mls/hr IV .Q24H [facility] Rx#:[id number] Sodium Chloride 0.9% 1, 225 900 75 000 ml @ 75 mls/hr IV . [id number] [facility] Rx#:[id number] Intake, IV Titration 10.834 9.088 Amount Norepinephrine 4 mg In 10.834 9.088 Sodium Chloride 0.9% 250 ml @ 0.05 MCG/KG/MIN 13. 43 mls/hr IV .[id number] [facility] Rx#:[id number] Output: Drainage 20 Left Neck 20 Urine 580 840 125 Estimated Blood Loss 15 Other: Voiding Method Indwelling Catheter Indwelling Catheter ABP, PAP, CO, CI - Last Documented Arterial Blood Pressure 97/88 - Exam GENERAL EXAM: Alert, very pleasant, 79-year-old white female, in 2 L of oxygen with pulse ox of 96%, comfortable in no apparent distress. HEAD: Normocephalic/atraumatic. EYES: Normal reaction of pupils, equal size. Conjunctiva pink, sclera white. NOSE: Clear with pink turbinates. THROAT: No erythema or exudates. NECK: No masses, no JVD, no thyroid enlargement, no adenopathy. Left neck incision is clean dry and intact, with a surgical dressing, trachea midline, no hematoma, incision is soft. Neck DAYNA drain has been discontinued CHEST: No chest wall deformity. Symmetrical expansion. LUNGS: Equal air entry with no crackles, wheeze, rhonchi or dullness. CVS: Regular rate and rhythm, normal S1 and S2, no gallops, no murmurs, no rubs ABDOMEN: Soft, nontender. No hepatosplenomegaly, normal bowel sounds, no guarding or rigidity. EXTREMITIES: No clubbing, no edema, no cyanosis, 2+ pulses and upper and lower extremities. MUSCULOSKELETAL: Muscle strength and tone normal. SPINE: No scoliosis or deformity SKIN: No rashes CENTRAL NERVOUS SYSTEM: Alert and oriented -3. Slight left corner of mouth droop. No focal deficits, tone is normal in all 4 extremities. PSYCHIATRIC: Alert and oriented -3. Appropriate affect. Intact judgment and insight. - Labs CBC & Chem 7: 09/21/19 07:12 Labs: Abnormal Lab Results - Last 24 Hours (Table) 09/20/19 09/21/19 Range/Units 13:53 07:12 Carbon Dioxide 18 L (22-30) mmol/L BUN 25 H (7-17) mg/dL Glucose 119 H (74-99) mg/dL POC Glucose (mg/dL) 129 H (75-99) mg/dL Assessment and Plan Plan: Assessment: #1. Left total carotid artery stenosis of 80%, status post left carotid endarterectomy and patch angioplasty, postop day 1 #2. Peripheral arterial disease #3. History of recent falls and dizziness #4. History of hypertension #5. History of hypercoagulable state, MTHFR gene mutation, on the Route toe #6. Previous history of pulmonary embolism and DVT #7. Anxiety #8. Osteoarthritis #9. Irritable bowel syndrome #10. Lifetime nonsmoker Plan: Patient is doing well, this is postoperative day 1, neurologically is intact, does have some mild occipital headache and neck discomfort, but no acute distress, hemodynamically she is stable, incisions clean dry and intact, blood pressure is stable, Xarelto remains on hold, patient continues on subcu heparin and aspirin, no acute events overnight, advance diet as tolerated, decrease IV fluids down to KVO. Antibiotics and DVT prophylaxis per vascular surgery. Possible discharge this afternoon if she continues to do well. I performed a history & physical examination of the patient and discussed their management with my nurse practitioner, Kisha Jaquez. I reviewed the nurse practitioner's note and agree with the documented findings and plan of care. Lung sounds are positive for clear breath sounds. The findings and the impression was discussed with the patient. I attest to the documentation by the nurse practitioner. Time with Patient: Less than 30
--- NOTE | 2019-09-21 10:11 | P.DS ---
Providers Date of admission: 09/20/19 07:02 Attending physician: Kareen Hicks DO Consults: 09/20/19 11:50 Consult Physician Routine Consulting Provider: Daquan Hartman Consult Reason/Comments: post op carotid Do you want consulting provider notified?: Yes Primary care physician: Daquan Hartman [facility] Course: The patient was seen and evaluated today sitting up in the chair. Patient tolerated breakfast. Patient is status post op day one of a left carotid and endarectomy with patch angioplasty. Through the night the patient had some episodes of hypotension and bradycardia however vital signs are stable now. A- line was discontinued, surgical incision site with dressing clean dry and intact. Dressing and ADYNA drain removed this morning by Dr. Hicks, surgical incision site clean dry and intact and well approximated. A 4 x 4 and Tegaderm dressing was applied. Patient may increase activity throughout the day, if blood pressure and heart rate remained stable likely discharge this afternoon with a follow-up with Dr. Hicks in one week. Patient to restart her Xarelto today. Plan - Discharge Summary Discharge Rx Participant: No New Discharge Prescriptions: No Action ALPRAZolam [Xanax] 0.5 mg PO HS PRN PRN Reason: Anxiety HYDROcodone/APAP 7.5-325MG [[place] 7.5-325] 1 tab PO Q6HR PRN PRN Reason: Pain Ranitidine HCl [Zantac] 150 mg PO DAILY PRN PRN Reason: GERD Amitriptyline HCl 50 mg PO HS PRN PRN Reason: Anxiety Rivaroxaban [Xarelto] 20 mg PO 1700 Cranberry Fruit Extract [Cranberry] 450 mg PO BID Omeprazole [PriLOSEC] 20 mg PO AC-BRKFST Atorvastatin [Lipitor] 40 mg PO HS Aspirin 81 mg PO DAILY amLODIPine [Norvasc] 5 mg PO DAILY Discharge Medication List ALPRAZolam [Xanax] 0.5 mg PO HS PRN 09/23/18 [History] Amitriptyline HCl 50 mg PO HS PRN 09/23/18 [History] HYDROcodone/APAP 7.5-325MG [[place] 7.5-325] 1 tab PO Q6HR PRN 09/23/18 [History] Ranitidine HCl [Zantac] 150 mg PO DAILY PRN 09/23/18 [History] Rivaroxaban [Xarelto] 20 mg PO 1700 09/23/18 [History] Cranberry Fruit Extract [Cranberry] 450 mg PO BID 02/07/19 [History] Atorvastatin [Lipitor] 40 mg PO HS 07/08/19 [History] Omeprazole [PriLOSEC] 20 mg PO AC-BRKFST 07/08/19 [History] Aspirin 81 mg PO DAILY 07/12/19 [History] amLODIPine [Norvasc] 5 mg PO DAILY 09/12/19 [History] Follow up Appointment(s)/Referral(s): Kareen Hicks DO [STAFF PHYSICIAN] - 1 Week Activity/Diet/Wound Care/Special Instructions: Increase activity as tolerated. May shower tomorrow. Discharge Disposition: HOME SELF-CARE
[2019-09-21 14:00] LABS: Basophils # (A) 0.1 k/uL (0-0.2); Basophils % (A) 0 %; Eosinophils % (A) 0 %; HCT 44.5 % (34.0-46.0); HGB 14.1 gm/dL (11.4-16.0); Lymphocytes # (A) 1.6 k/uL (1.0-4.8); Lymphocytes % (A) 11 %; MCH 33.2 pg (25.0-35.0); MCHC 31.6 g/dL (31.0-37.0); MCV 105.1 fL (80.0-100.0); Macrocytosis Slight; Mean Platelet Volume 10.3; Monocytes # (A) 0.8 k/uL (0-1.0); Monocytes % (A) 6 %; Neutrophils % (A) 82 %; Platelet Count 272 k/uL (150-450); RBC 4.24 m/uL (3.80-5.40); RDW 12.2 % (11.5-15.5); WBC 14.6 k/uL (3.8-10.6)
[2019-09-21 14:07] VITALS: BP 108/43; PULSE 63; RESP 20; TEMP 98
[2019-09-21] MEDS ORDERED: RIVAROXABAN 20 MG TAB PO SCH (17:30)
== END 2019-09-21 16:02 | disposition home or self-care (01) | DRG 38 ==
LOC: 2ORMAIN 07:02 → 2SICU 11:37
PROVIDERS: ADMIT Surgery; ATTEND Surgery
PROC: 03CK0ZZ Extirpation of Matter from Right Internal Carotid Artery, Open Approach (ICD-10-PCS; principal; 2019-09-20 08:45)
PROC: 03UK0KZ Supplement Right Internal Carotid Artery with Nonautologous Tissue Substitute, Open Approach (ICD-10-PCS; principal; 2019-09-20 08:45)
DX: I65.22 Occlusion and stenosis of left carotid artery (principal); E72.12 Methylenetetrahydrofolate reductase deficiency; D68.69 Other thrombophilia; I73.9 Peripheral vascular disease, unspecified; I95.9 Hypotension, unspecified; F41.9 Anxiety disorder, unspecified; R29.810 Facial weakness; M19.90 Unspecified osteoarthritis, unspecified site; M41.9 Scoliosis, unspecified; K58.9 Irritable bowel syndrome, unspecified; I10 Essential (primary) hypertension; Z79.01 Long term (current) use of anticoagulants; Z79.82 Long term (current) use of aspirin; Z79.899 Other long term (current) drug therapy; Z85.828 Personal history of other malignant neoplasm of skin; Z86.711 Personal history of pulmonary embolism; Z86.718 Personal history of other venous thrombosis and embolism
CPT/HCPCS: 80048; 85025; 86850; 86900; 86901; 88304; 88311

== ENCOUNTER → 2019-10-17 | Outpatient (CLI) | payer MEDICARE, BC ==
[2019-10-17 10:39] LABS: Basophils # (A) 0.1 k/uL (0-0.2); Basophils % (A) 1 %; Eosinophils # (A) 0.3 k/uL (0-0.7); Eosinophils % (A) 3 %; HCT 44.9 % (34.0-46.0); HGB 14.3 gm/dL (11.4-16.0); Lymphocytes # (A) 1.6 k/uL (1.0-4.8); Lymphocytes % (A) 18 %; MCH 32.4 pg (25.0-35.0); MCHC 31.7 g/dL (31.0-37.0); MCV 102.2 fL (80.0-100.0); Macrocytosis Slight; Mean Platelet Volume 7.6; Monocytes # (A) 0.5 k/uL (0-1.0); Monocytes % (A) 6 %; Neutrophils # (A) 6.1 k/uL (1.3-7.7); Neutrophils % (A) 69 %; Platelet Count 336 k/uL (150-450); RBC 4.39 m/uL (3.80-5.40); RDW 12.3 % (11.5-15.5); WBC 8.9 k/uL (3.8-10.6)
[2019-10-17 16:39] LABS: African American GFR (CKD) 62.9 (60.0-200.0); Albumin 4.7 g/dL (3.80-4.90); Albumin/Globulin Ratio 2.94 (1.60-3.17); Anion Gap 7.5 mmol/L (4.00-12.00); Calcium 9.9 mg/dL (8.7-10.3); Carbon Dioxide 27.5 mmol/L (21.6-31.8); Chol/HDL Ratio 2.67; Globulin 1.6 g/dL (1.6-3.3); LDL Cholesterol,Calculated 93.6 mg/dL (0.0-131.0); Non-African American GFR(CKD) 54.3 (60.0-200.0); Potassium 4.6 mmol/L (3.5-5.5); Total Bilirubin 0.5 mg/dL (0.3-1.2); Total Protein 6.3 g/dL (6.2-8.2); VLDL Calculation 18.4 mg/dL (5.00-40.00)
[2019-10-17 17:34] LABS: Hemoglobin A1C 5.5 % (4.0-6.0)
== END | disposition home or self-care (01) ==
LOC: LABWHC1 09:19
PROVIDERS: ATTEND Internal Medicine Critical Care Medicine
DX: I10 Essential (primary) hypertension (principal); J30.9 Allergic rhinitis, unspecified; C44.91 Basal cell carcinoma of skin, unspecified; C79.9 Secondary malignant neoplasm of unspecified site; I82.409 Acute embolism and thrombosis of unspecified deep veins of unspecified lower extremity; K58.9 Irritable bowel syndrome, unspecified; M19.90 Unspecified osteoarthritis, unspecified site; M41.9 Scoliosis, unspecified
CPT/HCPCS: 36415; 80053; 80061; 82306; 83036; 84439; 84443; 85025

== ENCOUNTER → 2020-02-01 | Outpatient (CLI) | payer MEDICARE, BC ==
--- NOTE | 2020-02-01 12:11 | CT ---
EXAMINATION TYPE: CT brain wo con DATE OF EXAM: 02/01/2020 COMPARISON: None INDICATION: syncope and repeated falls DLP: 742.7 mGycm, Automated exposure control for dose reduction was used. CONTRAST: None CT of the brain is performed utilizing 3 mm thick sections through the posterior fossa and 3 mm thick sections through the remaining calvarium. Study is performed within 24 hours of arrival to the hosp [facility]. No abnormal hyperdensity is present to suggest an acute intracranial hemorrhage. No mass lesion is evident. No acute infarcts are evident. There are scattered areas of periventricular white matter hypodensity, likely on the basis of chronic white matter ischemic change. There is some prominence of the extra-a xial spaces adjacent to the frontal lobes. Ventricles and sulci are diffusely mildly prominent for the patient age. There is fluid and mucosal thickening within the right sphenoid sinus. Remaining paranasal sinuses an d mastoid air cells are clear. IMPRESSIONS: 1. Atrophy with periventricular white matter ischemic changes. 2. Clinical correlation for acute right maxillary sinusitis is recommended.
== END | disposition home or self-care (01) ==
LOC: RADCTMAIN 11:47
PROVIDERS: ATTEND Internal Medicine Critical Care Medicine
DX: R54 Age-related physical debility (principal); R90.82 White matter disease, unspecified; Z88.2 Allergy status to sulfonamides; Z88.1 Allergy status to other antibiotic agents; Z91.011 Allergy to milk products; Z91.09 Other allergy status, other than to drugs and biological substances
CPT/HCPCS: 70450

== ENCOUNTER 2020-06-11 06:34 | Emergency (ER) | payer MEDICARE, BC ==
[2020-06-11 06:45] VITALS: TEMP 98.4
[2020-06-11] MEDS ORDERED: MORPHINE SULFATE 4 MG/ML SYRINGE IVP STA (06:45)
--- NOTE | 2020-06-11 06:51 | ED ---
Fall HPI <Daquan Silva - Last Filed: 06/11/20 07:53> - General Source: patient, EMS, RN notes reviewed, old records reviewed Mode of arrival: EMS - History of Present Illness Fall From: out of bed <JocySheila - Last Filed: 06/11/20 08:41> - General Chief Complaint: Fall Stated Complaint: Fall, rt ankle injury Time Seen by Provider: 06/11/20 06:35 - History of Present Illness Initial Comments: Patient is 80-year-old female history of Blood disorder, GERD, and osteoarthritis, who presents emergency department today after vertigo like episode in the middle the night when she was getting up to go to the bathroom. Patient reports that when she went to the restroom she twisted her right ankle. She reports her then let her to the couch. she denies head injury, l oss of consciousness. Denies headache. When they tried to wake up this morning at 6 AM to go back to the bathroom and realized the patient's ankle was significant only deformed and unable to ambulate. Patient has had no previous ankle or foot at fractures. She reports that when she fell she did not her head. She is on Xarelto. Patient states that she has normal sensation to the right foot and toes. She states that she has no other significant complaints including chest pain headache, shortness breath. She no loss of consciousness. (Sheila Sandra) - Related Data Home Medications Medication Instructions Recorded Confirmed ALPRAZolam [Xanax] 0.5 mg PO HS PRN 09/23/18 09/12/19 Amitriptyline HCl 50 mg PO HS PRN 09/23/18 09/12/19 HYDROcodone/APAP 7.5-325MG [[place] 1 tab PO Q6HR PRN 09/23/18 09/12/19 7.5-325] Ranitidine HCl [Zantac] 150 mg PO DAILY PRN 09/23/18 09/12/19 Rivaroxaban [Xarelto] 20 mg PO 1700 09/23/18 09/12/19 Cranberry Fruit Extract [Cranberry] 450 mg PO BID 02/07/19 09/12/19 Atorvastatin [Lipitor] 40 mg PO HS 07/08/19 09/12/19 Omeprazole [PriLOSEC] 20 mg PO AC-BRKFST 07/08/19 09/12/19 Aspirin 81 mg PO DAILY 07/12/19 09/12/19 amLODIPine [Norvasc] 5 mg PO DAILY 09/12/19 09/12/19 Allergies Allergy/AdvReac Type Severity Reaction Status Date / Time cephalexin Allergy Rash/Hives, Verified 09/20/19 07:56 stomach upset levofloxacin Allergy Anaphylaxis Verified 09/20/19 07:56 prednisone Allergy Anaphylaxis Verified 09/20/19 07:56 trimethoprim [From Bactrim] Allergy Rash/Hives Verified 09/20/19 07:56 lactose AdvReac Diarrhea Verified 09/20/19 07:56 lidocaine [From Lidoderm] AdvReac Rash/Hives Verified 09/20/19 07:56 phenazopyridine AdvReac Rash/Hives Verified 09/20/19 07:56 [From Pyridium] Sulfa (Sulfonamide AdvReac Rash/Hives Verified 09/20/19 07:56 Antibiotics) sulfamethoxazole AdvReac Rash/Hives Verified 09/20/19 07:56 [From Bactrim] Review of Systems ROS Other: All systems not noted in ROS Statement are negative. <Daquan Silva - Last Filed: 06/11/20 07:53> ROS Other: All systems not noted in ROS Statement are negative. <Sheila Sandra - Last Filed: 06/11/20 08:41> ROS Statement: Those systems with pertinent positive or pertinent negative responses have been documented in the HPI. Past Medical History Past Medical History: Blood Disorder, GERD/Reflux, Osteoarthritis (OA), Vascular Disorder Additional Past Medical History / Comment(s): scoliosis,, spur rt foot,corn between rt great toe and 2nd toe IBS, lt knee arthritis, varicose veins, poor circulation rt leg, gets numbness in rt foot and toe, "MTHFR, PROTHROMBIN, CINCALATIRS", having dizzy spells and balance problems History of Any Multi-Drug Resistant Organisms: None Reported Past Surgical History: Appendectomy, Cholecystectomy, Tonsillectomy Additional Past Surgical History / Comment(s): surgery for ulcers 2009, angiogram Past Anesthesia/Blood Transfusion Reactions: No Reported Reaction Past Psychological History: Anxiety Smoking Status: Never smoker Past Alcohol Use History: None Reported Past Drug Use History: None Reported - Past Family History Daughter(s) Family Medical History: Cancer Father Brother(s) Family Medical History: Cancer <Sheila Sandra - Last Filed: 06/11/20 08:41> General Exam General appearance: alert, in no apparent distress Head exam: Present: atraumatic, normocephalic, normal inspection Eye exam: Present: normal appearance, PERRL, EOMI. Absent: scleral icterus, conjunctival injection, periorbital swelling ENT exam: Present: normal exam, mucous membranes moist Neck exam: Present: normal inspection. Absent: tenderness, meningismus, lymp hadenopathy Respiratory exam: Present: normal lung sounds bilaterally. Absent: respiratory distress, wheezes, rales, rhonchi, stridor Cardiovascular Exam: Present: regular rate, normal rhythm, normal heart sounds. Absent: systolic murmur, diastolic murmur, rubs, gallop, clicks GI/Abdominal exam: Present: soft, normal bowel sounds. Absent: distended, tenderness, guarding, rebound, rigid Right Lower Leg exam: Present: tenderness, swelling, deformity. Absent: normal inspection, full ROM Ankle exam: Present: swelling, ecchymosis, deformity. Absent: normal inspect ion, full ROM Foot/Toe exam: Present: normal inspection, full ROM Neurovascular tendon exam: Present: no vascular compromise (cap refill less 2 seconds) Gait: unable to bear weight Back exam: Present: normal inspection Neurological exam: Present: alert, oriented X3, CN II-XII intact Psychiatric exam: Present: normal affect, normal mood Skin exam: Present: warm, dry, intact, normal color. Absent: rash <FloraaronjaneSheila - Last Filed: 06/11/20 08:41> - General Exam Comments Initial Comments: 80-year-old female. Alert, oriented. (Sheila Sandra) Course Vital Signs 06/11/20 06/11/20 06/11/20 06:35 07:38 07:42 Temperature 98.4 F Pulse Rate 72 74 74 Respiratory 16 18 16 Rate Blood Pressure 145/59 157/65 166/82 O2 Sat by Pulse 97 100 100 Oximetry 06/11/20 06/11/20 07:47 07:52 Temperature Pulse Rate 69 71 Respiratory 16 17 Rate Blood Pressure 173/74 179/75 O2 Sat by Pulse 100 100 Oximetry Procedures - Orthopedic Joint Reduction Joint #1 Consent Obtained: written consent Side: right Joint Reduction Location: ankle Analgesia: procedural sedation Technique Used: traction/counter-traction Post-Reduction Neuro Exam: other (Delayed cap Refill, Doppler signal present in the DP) Post-Reduction Vascular Exam: intact (Normal cap refill, palpable pulse DP) Post Reduction X-Ray Obtained: Yes Post Reduction X-Ray Results: reduced Splint Applied: Yes Patient Tolerated Procedure: well - Procedural Sedation Procedural Sedation Start Time: 07:38 Procedural Sedation Stop Time: 08:10 Indications: fracture/dislocation reduction ASA Class: II Mallampati Airway Score: 2 Preparation: rn cardiac applied, pulse oximeter, capnometry used, ramirez pplemental O2 applied, suction/airway equipment at bedside, IV secured IV Propofol Dose (mgs): 40 Complications: none Patient Tolerated Procedure: well <Daquan Silva - Last Filed: 06/11/20 07:53> - Orthopedic Splinting/Casting Injury #1 Side: right Lower Extremity Injury Location: short leg, ankle Lower Extremity Immobilizer: posterior splint, stirrup splint <Sheila Sandra - Last Filed: 06/11/20 08:41> Medical Decision Making - Lab Data Result diagrams: 06/11/20 07:08 06/11/20 07:08 <Daquan Silva - Last Filed: 06/11/20 07:53> - Lab Data Result diagrams: 06/11/20 07:08 06/11/20 07:08 - Radiology Data Radiology results: report reviewed <Sheila Sandra - Last Filed: 06/11/20 08:41> - Medical Decision Making 80-year-old female presents emergency department today for evaluation with complaints of right ankle pain. Patient reports that she was standing to the bathroom and felt dizzy. She reports that she then rolled her right ankle. Patient denies any other skin complaints Patient is on several toe. She reports that she called EMS at 6 AM when she try to get to the bathroom again and really she could not walk on this. Patient has evidence of right ankle. Pulses were palpable. Patient had anatomical reduction of dislocation. Pulses were intact. She has normal sensation distally. Attempted to contact on-call or so multiple times multiple ortho providers for over 2 hours without official contact. With unstable ankle more likely her chronic surgery discussed case with Dr. Lerma for transfer to [facility]. Discussed with the ER physician Dr. [facility] who also except transfer. (Sheila Sandra) - Lab Data Lab Results 06/11/20 06/11/20 06/11/20 Range/Units 07:08 07:08 07:08 WBC 14.8 H (3.8-10.6) k/uL RBC 3.87 (3.80-5.40) m/uL Hgb 13.4 (11.4-16.0) gm/dL Hct 40.0 (34.0-46.0) % MCV 103.3 H (80.0-100.0) fL MCH 34.6 (25.0-35.0) pg MCHC 33.5 (31.0-37.0) g/dL RDW 11.8 (11.5-15.5) % Plt Count 309 (150-450) k/uL Neutrophils % 86 % Lymphocytes % 8 % Monocytes % 4 % Eosinophils % 0 % Basophils % 0 % Neutrophils # 12.8 H (1.3-7.7) k/uL Lymphocytes # 1.2 (1.0-4.8) k/uL Monocytes # 0.7 (0-1.0) k/uL Eosinophils # 0.0 (0-0.7) k/uL Basophils # 0.0 (0-0.2) k/uL Macrocytosis Slight PT 10.2 (9.0-12.0) sec INR 1.0 (<1.2) APTT 22.4 (22.0-30.0) sec Sodium 136 L (137-145) mmol/L Potassium 4.3 (3.5-5.1) mmol/L Chloride 104 (98-107) mmol/L Carbon Dioxide 23 (22-30) mmol/L Anion Gap 9 mmol/L BUN 40 H (7-17) mg/dL Creatinine 0.95 (0.52-1.04) mg/dL Est GFR (CKD-EPI)AfAm 67 (>60 ml/min/1.73 sqM) Est GFR (CKD-EPI)NonAf 58 (>60 ml/min/1.73 sqM) Glucose 132 H (74-99) mg/dL Calcium 9.1 (8.4-10.2) mg/dL 06/11/20 08:11 EKG performed at 7:32 AM shows normal sinus rhythm right bundle branch block. Left anterior fascicular block. Voltage criteria for LVH. Abnormal ECG. Ventricular rate of 73 beats were minute. Pulse 204 ms. QRS duration is 1:30 milliseconds. QT QTc is 448/4 and 93 ms. (Sheila Sandra) - Radiology Data Blunted left costophrenic angle secondary to evolving soft tissue density and portable technique. Unable to exclude trace effusion with adjacent atelectasis or consolidation. No fracture dislocation the proximal mid tibia or fibula. Right ankle bimalleolar fracture and ankle dislocation. Bimalleolar ankle fracture with improved alignment. Gross anatomic reduction of the ankle more T's on the single view. (Sheila Sandra) Disposition <Daquan Silva - Last Filed: 06/11/20 07:53> Is patient prescribed a controlled substance at d/c from ED?: No Time of Disposition: 08:37 - Out of Hospital Transfer - Req. Specs Out of Hospital Transfer - Requested Specifics: Other Emergency Center ([facility]) <Sheila Sandra - Last Filed: 06/11/20 08:41> Clinical Impression: Ankle fracture, bimalleolar, closed, Ankle dislocation Disposition: DC/TRNS INTERMEDIATE CARE FAC Condition: Stable Referrals: Daquan Hartman DO [Primary Care Provider] - 1-2 days
[2020-06-11] MEDS ORDERED: PROPOFOL 10 MG/ML 20 ML VIAL IV ONE (07:06)
[2020-06-11 07:17] LABS: HGB 13.4 gm/dL (11.4-16.0); MCH 34.6 pg (25.0-35.0); MCHC 33.5 g/dL (31.0-37.0); MCV 103.3 fL (80.0-100.0); RBC 3.87 m/uL (3.80-5.40); RDW 11.8 % (11.5-15.5); WBC 14.8 k/uL (3.8-10.6)
[2020-06-11 07:18] LABS: Basophils % (A) 0 %; Eosinophils % (A) 0 %; Lymphocytes # (A) 1.2 k/uL (1.0-4.8); Lymphocytes % (A) 8 %; Macrocytosis Slight; Mean Platelet Volume 6.9; Monocytes # (A) 0.7 k/uL (0-1.0); Monocytes % (A) 4 %; Neutrophils # (A) 12.8 k/uL (1.3-7.7); Neutrophils % (A) 86 %; Platelet Count 309 k/uL (150-450)
--- NOTE | 2020-06-11 07:25 | XR ---
EXAMINATION TYPE: XR chest 1V DATE OF EXAM: 06/11/2020 COMPARISON: 03/16/2018 HISTORY: 80-year-old female fall, deformity, ankle pain TECHNIQUE: Single frontal view of the chest is obtained. FINDINGS: There is some blunting of the left costophrenic angle which could relate to overlying soft tissue den sity and portable technique. Underlying trace effusion. A patchy opacity not excluded. Heart upper li mits of normal in size. Atherosclerotic arch calcifications. The remaining lungs are clear. IMPRESSION: Blunted left costophrenic angle could be secondary to overlying soft tissue density and portable tech nique. Unable to exclude a trace left effusion with adjacent atelectasis and/or consolidation.
[2020-06-11 07:26] LABS: Calcium 9.1 mg/dL (8.4-10.2); Potassium 4.3 mmol/L (3.5-5.1)
[2020-06-11 07:28] LABS: Partial Thromboplastin Time 22.4 sec (22.0-30.0); Prothrombin Time 10.2 sec (9.0-12.0)
--- NOTE | 2020-06-11 07:28 | XR ---
EXAMINATION TYPE: XR tibia fibula 2 views RT, XR ankle complete 3 views RT DATE OF EXAM: 06/11/2020 COMPARISON: NONE HISTORY: 80-year-old female with fall and deformity, pain FINDINGS: Tibia/fibula: No acute fracture. The more proximal to mid tibia-fibula. Ankle: Displaced, angulated, and foreshortened bimalleolar ankle fracture deformity with associated posterio r ankle dislocation. IMPRESSION: 1. Tibia/fibula: No acute fracture of the more proximal to mid tibia or fibula. 2. Ankle: Right ankle bimalleolar fracture and ankle dislocation.
--- NOTE | 2020-06-11 08:00 | XR ---
EXAMINATION TYPE: XR ankle limited RT DATE OF EXAM: 06/11/2020 COMPARISON: Earlier today HISTORY: 80-year-old female postreduction exam TECHNIQUE: Single AP view FINDINGS: Overlying fiberglass cast is not demonstrated. Prominent fold within the cast material limiting evalu ation. There seems to have been overall reduction of the ankle mortise with redemonstrated bimalleola r ankle fractures. There is some distraction of the medial malleolus fragment by 6 mm lateral displac ement of the lateral malleolus fragment of 7 mm. IMPRESSION: Bimalleolar ankle fractures now in cast with improved alignment. Gross anatomic reduction of the ankl e mortise on this single view.
[2020-06-11 10:07] LABS: Appearance,Urine Clear (Clear); Bilirubin,Urine Negative (Negative); Blood,Urine Negative (Negative); Color,Urine Yellow; Glucose,Urine (UA) Negative (Negative); Hyaline Casts,Urine 3 /lpf (0-2); Ketones,Urine Negative (Negative); Leukocyte Esterase,Urine Moderate (Negative); Mucus,Urine Rare /hpf; Nitrite,Urine Negative (Negative); Protein,Urine Trace (Negative); RBC,Urine <1 /hpf (0-5); Specific Gravity,Urine 1.021 (1.001-1.035); Squamous Epithelial Cell,Urine <1 /hpf (0-4); Urobilinogen,Urine <2.0 mg/dL (<2.0); WBC,Urine 8 /hpf (0-5)
[2020-06-11 10:50] VITALS: BP 156/60; PULSE 67; RESP 16
== END 2020-06-11 11:30 ==
LOC: EC 06:34
DX: S82.841A Displaced bimalleolar fracture of right lower leg, initial encounter for closed fracture (principal); S93.04XA Dislocation of right ankle joint, initial encounter; M17.12 Unilateral primary osteoarthritis, left knee; K21.9 Gastro-esophageal reflux disease without esophagitis; K58.9 Irritable bowel syndrome, unspecified; F41.9 Anxiety disorder, unspecified; Z79.01 Long term (current) use of anticoagulants; Z79.899 Other long term (current) drug therapy; Z79.82 Long term (current) use of aspirin; Z88.1 Allergy status to other antibiotic agents; Z88.8 Allergy status to other drugs, medicaments and biological substances; Z91.011 Allergy to milk products; Z88.2 Allergy status to sulfonamides; Z88.6 Allergy status to analgesic agent; W18.39XA Other fall on same level, initial encounter; Y92.009 Unspecified place in unspecified non-institutional (private) residence as the place of occurrence of the external cause
CPT/HCPCS: 36415; 93005; 80048; 85025; 85610; 85730; 81001; 73590; 73600; 73610; 71045; 99285; 96374; 96375; 99152; 99153; 27810; J2270; J2704

== ENCOUNTER → 2020-10-23 | Outpatient (CLI) | payer MEDICARE, BC ==
[2020-10-23 15:21] LABS: Basophils # (A) 0.07 X 10*3/uL (0.00-0.10); Basophils % (A) 0.8 %; Eosinophils % (A) 2.3 %; HCT 45.9 % (37.2-46.3); HGB 14.7 g/dL (12.0-15.0); Lymphocytes # (A) 1.69 X 10*3/uL (0.90-5.00); Lymphocytes % (A) 19.2 %; MCV 103.1 fL (80.0-97.0); Mean Platelet Volume 10.7 fL (9.5-12.2); Monocytes # (A) 0.93 X 10*3/uL (0.20-1.00); Monocytes % (A) 10.6 %; Neutrophils # (A) 5.89 X 10*3/uL (1.80-7.70); Neutrophils % (A) 66.9 %; Platelet Count 325 X 10*3/uL (140-440); RBC 4.45 X 10*6/uL (4.10-5.20); RDW 12.7 % (11.5-14.5)
[2020-10-23 16:57] LABS: Hemoglobin A1C 5.7 % (4.0-6.0)
[2020-10-23 19:13] LABS: T4, Free (Free Thyroxine) 1.1 ng/dL (0.80-1.80)
[2020-10-23 20:16] LABS: Albumin 4.3 g/dL (3.80-4.90); Albumin/Globulin Ratio 1.54 (1.60-3.17); Anion Gap 8.1 mmol/L (4.00-12.00); Calcium 9.6 mg/dL (8.7-10.3); Carbon Dioxide 26.9 mmol/L (21.6-31.8); Chol/HDL Ratio 2.32; Globulin 2.8 g/dL (1.6-3.3); LDL Cholesterol,Calculated 79.8 mg/dL (0.0-131.0); Non-African American GFR(CKD) 61.2 (60.0-200.0); Total Bilirubin 0.7 mg/dL (0.3-1.2); Total Protein 7.1 g/dL (6.2-8.2); VLDL Calculation 15.2 mg/dL (5.00-40.00)
[2020-10-24 13:18] LABS: Hepatitis A Antibody IgM Non-Reactive (Non-Reactive); Hepatitis B Core IgM Non-Reactive (Non-Reactive); Hepatitis B Surface Antigen Non-Reactive (Non-Reactive); Hepatitis C IgG Antibody Non-Reactive (Non-Reactive)
== END | disposition home or self-care (01) ==
LOC: LABWHC1 08:03
PROVIDERS: ATTEND Internal Medicine Critical Care Medicine
DX: E78.5 Hyperlipidemia, unspecified (principal); E55.9 Vitamin D deficiency, unspecified; I10 Essential (primary) hypertension; M19.90 Unspecified osteoarthritis, unspecified site; R19.7 Diarrhea, unspecified; F41.9 Anxiety disorder, unspecified
CPT/HCPCS: 36415; 80053; 80061; 80074; 82306; 83036; 84439; 84443; 85025

== ENCOUNTER → 2020-10-26 | Outpatient (CLI) | payer MEDICARE, BC ==
--- NOTE | 2020-10-26 12:30 | US ---
EXAMINATION TYPE: US abdomen limited DATE OF EXAM: 10/26/2020 COMPARISON: CT 2012, US 2009 CLINICAL HISTORY: K58.9 Irritable Bowel Syndrome. EXAM MEASUREMENTS: Liver Length: 14.4 cm CBD: 0.5 cm Right Kidney: 9.0 x 4.8 x 4.4 cm Pancreas: obscured by overlying midline bowel gas Liver: mildly course echotexture Gallbladder: surgically absent Evidence for sonographic Ludwig's sign: no CBD: wnl Right Kidney: wnl IMPRESSION: 1. Mild fatty infiltration liver. 2. Right upper quadrant ultrasound otherwise appears unremarkable post cholecystectomy.
== END ==
LOC: RADUSWWP 10:38
PROVIDERS: ATTEND Internal Medicine Critical Care Medicine
DX: K76.0 Fatty (change of) liver, not elsewhere classified (principal); K58.9 Irritable bowel syndrome, unspecified
CPT/HCPCS: 76705

== ENCOUNTER 2021-04-03 07:20 | Day surgery (SDC) | payer MEDICARE, BC ==
[2021-04-01 16:41] VITALS: BMI 28.2
[~2021-04-03 07:20] MED LIST changes: -CLINDAMYCIN 900 MG in DEXTROSE 5% IN WATER 50 ML IVPB ONE; -DEXAMETHASONE SOD PHOSPHATE 10 MG/ML 1 ML VIAL IV ONE; +LACTATED RINGERS 1,000 ML IV SCH; -LIDOCAINE 1% 20 ML VIAL (10MG/ML) FOR IV START INTRADERMA PRN; -MORPHINE SULFATE 2 MG/ML SYRINGE IV PRN; -ONDANSETRON 4 MG/2 ML VIAL IVP ONE; +PHENYLEPHRINE 2.5% OPHTH DRP 2ML OP PRN; +TETRACAINE 0.5% OPHTH (PF) DROPS 4 ML BTL OP PRN; +TIMOLOL 0.5% OPHTH DROPS 5 ML BTL OP PRN
[2021-04-03] MEDS: CYCLOPENTOLATE 1% OPHTH SOLN 2 ML BTL OP PRN ×2 (07:53→07:58)
[2021-04-03 07:57] VITALS: TEMP 97.3
[2021-04-03] MEDS ORDERED: LIDOCAINE 1% (10MG/ML) FOR IV START INTRADERMA ONE (08:03)
[2021-04-03] MEDS ORDERED: fentaNYL (PF) 50 MCG/ML 2 ML AMP ONE (08:45)
[2021-04-03] MEDS ORDERED: MIDAZOLAM 2 MG/2 ML VIAL ONE (08:45)
[2021-04-03] MEDS ORDERED: HYALURONATE SODIUM INTRAOCULAR 1 EACH SYRINGE (12MG/ML) INTRAOCULA ONE (09:02)
[2021-04-03] MEDS ORDERED: EPINEPHrine (PF) 0.3 ML in BALANCED SALT IRRIG SOLN COMB2 500 ML IRRIGATION ONE (09:03)
[2021-04-03] MEDS ORDERED: LIDOCAINE 1% (PF) 10MG/ML VIAL SQ ONE (09:03)
[2021-04-03] MEDS ORDERED: BALANCED SALT IRRIG SOLN COMB2 15 ML IRRIG.SOLN INTRAOCULA ONE (09:03)
--- NOTE | 2021-04-03 09:15 | P.OP ---
Date of Procedure: 04/03/21 Preoperative Diagnosis: NS & CS & PSC Postoperative Diagnosis: same Procedure(s) Performed: PIOL, OD Implants: [id number] 22.00 Anesthesia: MAC Surgeon: Salvador Guillermo Pathology: none sent Condition: stable Disposition: same day Indications for Procedure: blurry vision Operative Findings: no complications
[2021-04-03 09:31] VITALS: RESP 20
[2021-04-03 10:18] VITALS: BP 157/82; PULSE 60
--- NOTE | 2021-04-03 19:36 | OP ---
OPERATIVE REPORT DATE OF SURGERY: April 03, 2021 PROCEDURE: Phacoemulsification of cataract from the right eye. PREOPERATIVE DIAGNOSES: Nuclear sclerosis, cortical sclerosis, posterior subcapsular cataract. POSTOPERATIVE DIAGNOSES: Nuclear sclerosis, cortical sclerosis, posterior subcapsular cataract. OPERATION: Clear cornea phacoemulsification of cataract right OD eye. ESTIMATED BLOOD LOSS: Zero. SPECIMEN TAKEN: None. NARRATIVE: After obtaining the appropriate consent, the patient was brought to the Operating Room where the patient was placed under cardiac monitoring and prepped and draped in the usual sterile manner. At the 11 o'clock position a 15 degree super sharp blade was used to create a paracentesis followed by instillation of 1% Xylocaine MPF 50:50 mix with BSS into the anterior chamber. This was followed by Amvisc to stabilize the anterior chamber. At the 9 o'clock position a self-sealing corneal flap incision was created using 2.8 mm patricia keratome. A cystotome was used to initiate a continuous tear capsulorrhexis which was completed with the Utrata forceps. A Binkhorst cannula was used to hydrodissect the lens nucleus followed by hydrodelineation. Phacoemulsification of the lens was performed utilizing phacochop in 11.91 seconds at 18% power. The remaining cortical material was removed using the irrigation aspiration mode followed by additional 1% Xylocaine MPF into the anterior chamber followed by viscoelastic to stabilize the capsular bag. A [employer] MX 60E 22.0 diopter posterior chamber lens was placed into the capsular bag without difficulty. The remaining viscoelastic material was removed from the anterior chamber with the irrigation/aspiration. Balanced salt solution was used to normalize the intraocular pressure. The incision was checked for watertight integrity. The patient then received two drops of 0.5% timolol followed by two drops Vigamox, was lightly patched and shielded in the usual manner. There were no complications from the procedure. The patient tolerated the procedure well and was returned to recovery in good condition. MMODL / IJN: [id number] /
== END 2021-04-03 10:55 | disposition home or self-care (01) ==
LOC: OR 07:20
PROVIDERS: ATTEND Ophthalmology
DX: H25.11 Age-related nuclear cataract, right eye (principal); M19.90 Unspecified osteoarthritis, unspecified site; Z79.899 Other long term (current) drug therapy; Z88.1 Allergy status to other antibiotic agents; Z88.2 Allergy status to sulfonamides; Z88.8 Allergy status to other drugs, medicaments and biological substances; E78.00 Pure hypercholesterolemia, unspecified; K21.9 Gastro-esophageal reflux disease without esophagitis; Z86.711 Personal history of pulmonary embolism; Z79.01 Long term (current) use of anticoagulants
CPT/HCPCS: 66984; C1780; J2250; J0171; J3010; J2001

== ENCOUNTER 2021-04-17 07:56 | Day surgery (SDC) | payer MEDICARE, BC ==
[2021-04-12 13:35] VITALS: BMI 28.1
[~2021-04-17 07:56] MED LIST changes: +CYCLOPENTOLATE 1% OPHTH SOLN 2 ML BTL OP PRN; +GENTAMICIN 0.3% OPHTH DROPS 5 ML BTL LEFT EYE PRN; +PILOCARPINE 2% OPHTH DROPS 15 ML BTL OP PRN
[2021-04-17] MEDS ORDERED: MIDAZOLAM 2 MG/2 ML VIAL ONE (09:15)
[2021-04-17] MEDS ORDERED: fentaNYL (PF) 50 MCG/ML 2 ML AMP ONE (09:15)
[2021-04-17 09:23] VITALS: TEMP 98
[2021-04-17] MEDS ORDERED: HYALURONATE SODIUM INTRAOCULAR 1 EACH SYRINGE (12MG/ML) INTRAOCULA ONE (09:24)
[2021-04-17] MEDS ORDERED: EPINEPHrine (PF) 0.3 ML in BALANCED SALT IRRIG SOLN COMB2 500 ML IRRIGATION ONE (09:24)
[2021-04-17] MEDS ORDERED: LIDOCAINE 1% (PF) 10MG/ML VIAL MISCELLANE ONE (09:25)
[2021-04-17] MEDS ORDERED: BALANCED SALT IRRIG SOLN COMB2 15 ML IRRIG.SOLN INTRAOCULA ONE (09:25)
--- NOTE | 2021-04-17 09:48 | P.OP ---
Date of Procedure: 04/17/21 Preoperative Diagnosis: NS & CS & PSC Postoperative Diagnosis: same Procedure(s) Performed: PIOL, OS Implants: [id number] 22.0 Anesthesia: MAC Surgeon: Salvador Guillermo Pathology: none sent Condition: stable Disposition: same day Indications for Procedure: blurry vision Operative Findings: no complications
[2021-04-17 10:48] VITALS: BP 142/78; PULSE 78; RESP 18
--- NOTE | 2021-04-18 09:13 | OP ---
OPERATIVE REPORT DATE OF SERVICE: April 17, 2021. PROCEDURES: Phacoemulsification of cataract and intraocular lens implant of the left eye with use are standard left eye cataract. PREOPERATIVE DIAGNOSES: Nuclear sclerosis, cortical sclerosis, posterior subcapsular cataract. SURGEON: Dr. Salvador Guillermo OPERATION: Clear cornea phacoemulsification of cataract left/OS eye. ESTIMATED BLOOD LOSS: Zero. SPECIMEN TAKEN: None. NARRATIVE: After obtaining the appropriate consent, the patient was brought to the Operating Room where the patient was placed under cardiac monitoring and prepped and draped in the usual sterile manner. At the 5 o'clock position a 15 degree super sharp blade was used to create a paracentesis followed by instillation of 1% Xylocaine MPF 50:50 mix with BSS into the anterior chamber. This was followed by Amvisc to stabilize the anterior chamber. At the 3 o'clock 1position a self-sealing corneal flap incision was created using 2.8 mm patricia keratome. A cystotome was used to initiate a continuous tear capsulorrhexis which was completed with the Utrata forceps. A Binkhorst cannula was used to hydrodissect the lens nucleus followed by hydrodelineation. Phacoemulsification of the lens was performed utilizing phacochop in 13.34 seconds at 9% power. The remaining cortical material was removed using the irrigation aspiration mode followed by additional 1% Xylocaine MPF into the anterior chamber followed by viscoelastic to stabilize the capsular bag. A [employer]ch [employer] Lomb MX 60E 22.0 diopter posterior chamber lens was placed into the capsular bag without difficulty. The remaining viscoelastic material was removed from the anterior chamber with the irrigation/aspiration. Balanced salt solution was used to normalize the intraocular pressure. The incision was checked for watertight integrity. The patient then received two drops of 0.5% timolol followed by two drops Vigamox, was lightly patched and shielded in the usual manner. There were no complications from the procedure. The patient tolerated the procedure well and was returned to recovery in good condition. MMODL / IJN: [id number] /
== END 2021-04-17 10:49 | disposition home or self-care (01) ==
LOC: OR 07:56
PROVIDERS: ATTEND Ophthalmology
DX: H25.12 Age-related nuclear cataract, left eye (principal); H25.012 Cortical age-related cataract, left eye; H50.52 Exophoria; H00.021 Hordeolum internum right upper eyelid; B07.9 Viral wart, unspecified; H00.023 Hordeolum internum right eye, unspecified eyelid; E78.5 Hyperlipidemia, unspecified; K21.9 Gastro-esophageal reflux disease without esophagitis; Z96.1 Presence of intraocular lens; Z98.49 Cataract extraction status, unspecified eye; H43.813 Vitreous degeneration, bilateral; Z79.01 Long term (current) use of anticoagulants; Z79.899 Other long term (current) drug therapy; Z86.718 Personal history of other venous thrombosis and embolism
CPT/HCPCS: 66984; C1780; J2250; J0171; J3010; J2001

== ENCOUNTER → 2021-11-08 | Outpatient (CLI) | payer MEDICARE, BC ==
[2021-11-08 14:52] LABS: HCT 45.1 % (37.2-46.3); HGB 14.6 g/dL (12.0-15.0); MCH 34.4 pg (27.0-32.0); MCHC 32.4 g/dL (32.0-37.0); MCV 106.1 fL (80.0-97.0); Mean Platelet Volume 10.4 fL (9.5-12.2); NRBC Per 100 WBC 0 /100 WBCS (0.0-0.0); Platelet Count 309 X 10*3/uL (140-440); RBC 4.25 X 10*6/uL (4.10-5.20); RDW 12.7 % (11.5-14.5); WBC 10.34 X 10*3/uL (4.50-10.00)
[2021-11-08 15:39] LABS: ALT 24 U/L (8-44); AST 29 U/L (13-35); African American GFR (CKD) 94.9 (60.0-200.0); Albumin 4.6 g/dL (3.8-4.9); Albumin/Globulin Ratio 2.02 (1.60-3.17); Alkaline Phosphatase 99 U/L (41-126); Bilirubin, Conjugated <0.20 mg/dL (0.20-0.40); Blood Urea Nitrogen 17.6 mg/dL (9.0-27.0); Calcium 10.1 mg/dL (8.7-10.3); Carbon Dioxide 24.7 mmol/L (20.0-27.5); Chloride 104 mmol/L (96-109); Chol/HDL Ratio 2.15 Ratio; Globulin 2.3 g/dL (1.6-3.3); Glucose 114 mg/dL (70-110); LDL Cholesterol,Calculated 79.4 mg/dL (0.0-131.0); Non-African American GFR(CKD) 81.8 (60.0-200.0); Sodium 143 mmol/L (135-145); Total Protein 6.8 g/dL (6.2-8.2)
[2021-11-08 15:51] LABS: Basophils # (A) 0.03 X 10*3/uL (0.00-0.10); Basophils % (A) 0.3 %; Eosinophils # (A) 0.11 X 10*3/uL (0.04-0.35); Eosinophils % (A) 1.1 %; Immature Grans, Automated 0.3 %; Lymphocytes # (A) 2.01 X 10*3/uL (0.90-5.00); Lymphocytes % (A) 19.4 %; Monocytes # (A) 0.79 X 10*3/uL (0.20-1.00); Monocytes % (A) 7.6 %; Neutrophils # (A) 7.37 X 10*3/uL (1.80-7.70); Neutrophils % (A) 71.3 %
== END | disposition home or self-care (01) ==
LOC: LABWHC1 09:12
PROVIDERS: ATTEND Internal Medicine Critical Care Medicine
DX: Z00.00 Encounter for general adult medical examination without abnormal findings (principal); I10 Essential (primary) hypertension; I25.10 Atherosclerotic heart disease of native coronary artery without angina pectoris; E55.9 Vitamin D deficiency, unspecified; R53.83 Other fatigue
CPT/HCPCS: 36415; 80053; 80061; 82248; 82306; 83036; 84439; 84443; 85025

== ENCOUNTER → 2022-06-07 | Outpatient (CLI) | payer MEDICARE, BC ==
--- NOTE | 2022-06-08 05:36 | MR ---
EXAMINATION TYPE: MR knee LT wo con DATE OF EXAM: 06/07/2022 COMPARISON: 08/11/2017 HISTORY: Left knee pain, locking, and swelling for 6 months due to slip and fall Multiplanar multiecho imaging of the left knee performed with no contrast. There is severe narrowing of the medial joint space. There is extensive spurring of the femoral and t ibial condyles. There is subchondral edema in the medial and lateral tibial condyle. There is some de generative cyst formation in the proximal tibia at the base of the tibial spines. The medial meniscus is mostly obliterated. There is knee joint effusion. There is some degenerative thinning of the ante rior horn of the lateral meniscus. There is vertical tear anterior horn lateral meniscus. There is te ar in the posterior horn lateral meniscus extending to the inferior surface. The collateral ligaments are intact. No definite fracture seen. The anterior and posterior cruciate ligaments are intact. IMPRESSION: Advanced osteoarthritis in the medial joint space. Less severe osteoarthritis lateral joint space. Mi ld osteoarthritis in the patellofemoral joint. Knee joint effusion. No evidence of ligamentous tear. Extensive tear of the entire medial meniscus with medial displacement. There is progression of the os teoarthritis compared to old exam. There are tears in the anterior and posterior horns of the lateral meniscus also present on old exam.
== END | disposition home or self-care (01) ==
LOC: RADMRIMAIN 15:02
PROVIDERS: ATTEND Obstetrics & Gynecology
DX: M17.12 Unilateral primary osteoarthritis, left knee (principal); M25.462 Effusion, left knee; M23.322 Other meniscus derangements, posterior horn of medial meniscus, left knee

== ENCOUNTER → 2022-09-02 | Outpatient (CLI) | payer MEDICARE, BC ==
[2022-09-02 19:53] LABS: Protein, Total 6.7 g/dL (6.2-8.2)
[2022-09-02 20:13] LABS: Creatine Kinase 105 U/L (26-186)
--- NOTE | 2022-09-03 06:52 | MR ---
EXAMINATION TYPE: MR lumbar spine wo con DATE OF EXAM: 09/02/2022 COMPARISON: NONE HISTORY: Low back pain that radiates down legs, balance issues, falls TECHNIQUE: Multiplanar, multisequence imaging of the lumbar spine is performed without IV contrast. FINDINGS: There is levoconvex scoliosis centered at L2-L3 level. There is grade 1 retrolisthesis of L 1 on L2 and grade 1 anterolisthesis of L4 and L5. Sagittal images of the lumbar spine show vertebral body heights to appear satisfactory. There is multilevel disc desiccation and multilevel disc space n arrowing that is fairly moderate with relative sparing of the L5-S1 level. The conus medullaris is n ormal in position and signal ending at superior L1 level. There is [id number] height loss with diminished signal involving the anterior superior T11 vertebra presumed chronic. Moderate anterior sp urring near the thoracolumbar junction is present. There are some heterogeneous Modic type II endplat e changes in the upper lumbar spine. Posterior disc herniations efface the anterior thecal sac in the lower thoracic spine on sagittal images. Axial images at T12-L1 level show moderate broad-based disc bulge effacing the anterior thecal sac al candi with mild facet arthropathy bilaterally. There is mild left-sided neural foraminal narrowing. Axial images at L1-L2 level show spondylolisthesis with posterior spur disc complex moderately effaci ng anterior thecal sac and mild facet arthropathy bilaterally. Patent bilateral neural foramina. Axial images at L2-L3 level show mild to moderate right greater than left facet arthropathy. Spinal c anal is preserved. Axial images at L3-L4 level show mild to moderate facet arthropathy bilaterally. There is mild right- sided neural foraminal narrowing due to foraminal spur disc complex. Axial images at L4-L5 level shows spondylolisthesis with moderate to advanced facet arthropathy bilat erally. There is mild/moderate broad-based left paracentral disc protrusion effacing anterior thecal sac. There is severe left-sided neural foraminal narrowing. Encroaching on the left L4 nerve sagittal image 6 and axial image 8. Right-sided neural foramina shows moderate anterior inferior neural diaz inal narrowing without effacement. Axial images at L5-S1 level show moderate facet arthropathy bilaterally. Spinal canal is preserved. B ilateral neural foramina are patent. There is cortical thinning and tiny thin-walled cysts consistent with chronic medical renal disease i n visualized portion of both kidneys. IMPRESSION: Scoliosis with multilevel spondylolisthesis and degenerative change in the lumbar spine a s detailed above. Encroachment on exiting L4 nerve at L4-L5 level is noted.
[2022-09-03 09:33] LABS: Lyme IgG/IgM 0.04 Index
== END | disposition home or self-care (01) ==
LOC: RADMRIMAIN 10:32
PROVIDERS: ATTEND Psychiatry & Neurology Neurology
DX: M47.816 Spondylosis without myelopathy or radiculopathy, lumbar region (principal); M41.86 Other forms of scoliosis, lumbar region; M43.16 Spondylolisthesis, lumbar region; G62.89 Other specified polyneuropathies
CPT/HCPCS: 72148; 82550; 82607; 82747; 83036; 84165; 84207; 84439; 84443; 85652; 86618

== ENCOUNTER → 2023-04-14 | Outpatient (CLI) | payer MEDICARE, BC ==
[2023-04-14 20:29] LABS: Basophils # (A) 0.03 X 10*3/uL (0.00-0.10); Basophils % (A) 0.5 %; Eosinophils % (A) 1.6 %; HCT 42.3 % (37.2-46.3); HGB 13.4 d/dL (12.0-15.0); Lymphocytes # (A) 0.69 X 10*3/uL (0.90-5.00); Lymphocytes % (A) 11.1 %; MCH 32.8 pg (27.0-32.0); MCHC 31.7 d/dL (32.0-37.0); MCV 103.7 FL (80.0-97.0); Mean Platelet Volume 9.6 FL (9.5-12.2); Monocytes # (A) 0.46 X 10*3/uL (0.20-1.00); Monocytes % (A) 7.4 %; NRBC Per 100 WBC 0 X 10*3/uL (0.00-0.01); Neutrophils # (A) 4.93 X 10*3/uL (1.80-7.70); Neutrophils % (A) 79.1 %; Platelet Count 389 X 10*3/uL (140-440); RBC 4.08 X 10*6/uL (4.10-5.20); WBC 6.23 X 10*3/uL (4.50-10.00)
[2023-04-14 21:04] LABS: Blood Urea Nitrogen 36.9 mg/dL (9.0-27.0); Calcium 10.3 mg/dL (8.7-10.3); Carbon Dioxide 22.7 mmol/L (21.6-31.8); Chloride 104 mmol/L (96-109); Glucose 96 mg/dL (70-110); Potassium 4.1 mmol/L (3.5-5.5); Sodium 141 mmol/L (135-145)
== END | disposition home or self-care (01) ==
LOC: LABWHC1 16:13
PROVIDERS: ATTEND Internal Medicine Cardiovascular Disease
DX: Z01.812 Encounter for preprocedural laboratory examination (principal); I73.9 Peripheral vascular disease, unspecified
CPT/HCPCS: 36415; 80048; 85025

== ENCOUNTER → 2024-06-01 | Outpatient (CLI) | payer MEDICARE, BC ==
[2024-06-01 11:11] VITALS: BP 127/70; PULSE 90; RESP 16; TEMP 97.1
--- NOTE | 2024-06-01 13:16 | P.PAINPG ---
PQRS Measure Charge Sheet Comment: HISTORY OF PRESENT ILLNESS: A 84 yr old wheelchair bound female w at side as a referral from [facility] presents today w severe and chronic LBP > secondary to radiculopathy, spondylosis and facet arthropathy without myelopathy for evaluation. Pt states pain level is provoked at /10 in intensity, constant, localized in the lower lumbar spine, predominantly axial, achy in character w occasional shooting pain towards the back of the LEs. Pain is provoked by walking/ standing for periods > 5 min. Pain is alleviated by PT x 6 wks (Ankle) which ended in 2022, chiropractic treatments weekly since Feb 2024, heat, medications (Tyl Arthritis), topical, repositioning and rest . PMH: OA, Blood Disorder, Eye Disorder, GERD, Hyperlipidemia , Scoliosis, Anxiety PSH: L Carotid Endarectomy, Angiogram, Appendectomy, Cholecystectomy, Stomach Surgery for Ulcers, R Ankle ORIF, Tonsillectomy SH: Never smoker, No ETOH abuse, No illicit drug use FH: Daughter- CA. Fa- CA. Bro- CA. Mo- CA All: See list Meds: See list REVIEW OF ORGAN SYSTEMS: CONSTITUTIONAL: No fevers or chills. No recent weight loss. NEUROLOGICAL: + numbness and tingling along the distal extremities. No seizure disorders or headaches. MUSCULOSKELETAL: + pain PSYCHIATRIC: Denies current depression or suicidal thoughts. Physical Examinations : Constitutional : Cooperative , not in acute distress . Neurologic : Cranial nerve II to XII intact. No focal neurological deficits. Psychiatric : alert & oriented x 3. Matching mood & appropriate affect. Judgment & insight intact. Musculoskeletal : Cervical Spine Motor strength in the deltoid and biceps: Normal right side. Normal Left side Motor strength biceps and the wrist extensors: Normal right side . Normal left side Motor strength in the triceps muscle: Normal right side. Normal left side Deep tendon reflexes: Normal at the biceps. Normal at Brachioradialis. Normal at triceps Vertebral body tenderness to deep palpation over Cervical facet loading test: positive bilaterally Spurling test: positive bilaterally Neck distraction test: positive bilaterally Marium sign: positive bilaterally Lumbar spine Motor strength lower extremities ,thigh and legs 5/5 Right side , 5/5 Left side Deep tendon reflexes : Normal Knee Jerk. Normal Ankle Jerk Vertebral body tenderness over Ferrer Test positive L4-L5 Lumbar facet Loading Test: positive Right / positive Left Range of motion of the lumbar spine Flexion 30 degrees, extension 10 degrees Straight Leg Raise test: Left/ Right positive at degrees Kiera test: positive right / positive left. Severe tenderness over the Sacroiliac joint on the Right / Left sides Gaenslen test: positive bilaterally Seated flexion test: positive bilaterally. Sacral spine : Severe tenderness over the Sacroiliac joint: right side / left side Range of motion: Flexion of the lumbar spine <60 degrees Range of motion: Extension of the lumbar spine <20 degrees Gaenslen's Test positive Kiera test: positive right side / left side Thigh Thrust Test Sacral Thrust Test Imaging: MRI non contrast lumbar spine from 09/02/22 reviewed Assessment/ Plan : L4-L5 radiculopathy Recommendation of medication management. Opiate/ narcotic agreement signed 06/01/24 . [place] 5/325gm #60 1 RF. Use, side effects, adverse reactions, safe storage discussed. All questions answered. I have spent greater than 30 minutes on patient care today. Dr Reyna was available by phone for the evaluation of this patient. The time was used to review the medical records including relevant urine studies and Prescription history (MAPs), review of the available imaging, evaluation and examination of the patient, coordination of care with the medical staff and if applicable referring physicians, as well as creation of the medical record - Pain Location Bilateral Lower Back Non-Pharmacological Interventions: Heat, Ice, Inactivity, Physical Therapy, Position/Reposition, Sitting Pharmacological Interventions: PRN Medication, Scheduled Medication, Topical Medication PQRS Narrative: Smoking Status Never smoker Home Medications: Ambulatory Orders ALPRAZolam [Xanax] 0.5 mg PO DAILY PRN 09/23/18 Rivaroxaban [Xarelto] 20 mg PO 1700 09/23/18 Atorvastatin [Lipitor] 40 mg PO HS 07/08/19 Omeprazole [PriLOSEC] 20 mg PO AC-BRKFST 07/08/19 Aspirin 81 mg PO DAILY 07/12/19 Acetaminophen [Tylenol Extra Strength] 500 - 650 mg PO DIRECTED PRN 04/01/21 Famotidine [Pepcid] 20 mg PO BID 04/01/21 HYDROcodone/APAP 5-325MG [[place] 5-325] 1 tab PO BID PRN 30 Days #60 tab 06/01/24 HYDROcodone/APAP 5-325MG [[place] 5-325] 1 tab PO BID PRN 30 Days #60 tab 06/01/24 Controlled Substance Measures - Controlled Substance Measures Is patient prescribed a controlled substance at discharge?: Yes When asked, does pt state using other controlled substances?: No If prescribed controlled substance>3 days was MAPS reviewed?: Yes If Rx opioid, was Start Talking consent form obtained?: Yes Was information provided regarding opioid addiction?: Yes
== END ==
LOC: PNWHC3 10:37
PROVIDERS: ATTEND Specialist
DX: M47.816 Spondylosis without myelopathy or radiculopathy, lumbar region (principal); M54.16 Radiculopathy, lumbar region; Z88.1 Allergy status to other antibiotic agents; Z88.2 Allergy status to sulfonamides; Z88.8 Allergy status to other drugs, medicaments and biological substances; Z91.048 Other nonmedicinal substance allergy status; Z88.9 Allergy status to unspecified drugs, medicaments and biological substances; Z91.011 Allergy to milk products
CPT/HCPCS: 99211

== ENCOUNTER → 2024-07-27 | Outpatient (CLI) | payer MEDICARE, BC ==
[2024-07-27 11:04] VITALS: BP 178/67; PULSE 86; RESP 16
--- NOTE | 2024-07-27 15:05 | P.PAINPG ---
PQRS Measure Charge Sheet Comment: HISTORY OF PRESENT ILLNESS: A 84 yr old wheelchair bound female w at side presents today w severe and chronic LBP > secondary to radiculopathy, spondylosis and facet arthropathy without myelopathy for evaluation. Pt states pain level is provoked at 8 /10 in intensity, constant, localized in the lower lumbar spine, predominantly axial, burning in character w occasional shooting pain towards the back of the LEs. Pain is provoked by walking/ standing for periods > 5 min. Pain is alleviated by PT x 6 wks (Ankle) which ended in 2022, chiropractic treatments weekly since Feb 2024, heat, medications, topical, repositioning and rest . Interventional procedures include Medications include [place] 5/325mg #60, Tyl Arth REVIEW OF ORGAN SYSTEMS: CONSTITUTIONAL: No fevers or chills. No recent weight loss. NEUROLOGICAL: + numbness and tingling along the distal extremities. No seizure disorders or headaches. MUSCULOSKELETAL: + pain PSYCHIATRIC: Denies current depression or suicidal thoughts. Physical Examinations : Constitutional : Cooperative , not in acute distress . Neurologic : Cranial nerve II to XII intact. No focal neurological deficits. Psychiatric : alert & oriented x 3. Matching mood & appropriate affect. Judgment & insight intact. Musculoskeletal : Cervical Spine Motor strength in the deltoid and biceps: Normal right side. Normal Left side Motor strength biceps and the wrist extensors: Normal right side . Normal left side Motor strength in the triceps muscle: Normal right side. Normal left side Deep tendon reflexes: Normal at the biceps. Normal at Brachioradialis. Normal at triceps Vertebral body tenderness to deep palpation over Cervical facet loading test: positive bilaterally Spurling test: positive bilaterally Neck distraction test: positive bilaterally Marium sign: positive bilaterally Lumbar spine Motor strength lower extremities ,thigh and legs 5/5 Right side , 5/5 Left side Deep tendon reflexes : Normal Knee Jerk. Normal Ankle Jerk Vertebral body tenderness over Ferrer Test positive L4-L5 Lumbar facet Loading Test: positive Right / positive Left Range of motion of the lumbar spine Flexion 30 degrees, extension 10 degrees Straight Leg Raise test: Left/ Right positive at degrees Kiera test: positive right / positive left. Severe tenderness over the Sacroiliac joint on the Right / Left sides Gaenslen test: positive bilaterally Seated flexion test: positive bilaterally. Sacral spine : Severe tenderness over the Sacroiliac joint: right side / left side Range of motion: Flexion of the lumbar spine <60 degrees Range of motion: Extension of the lumbar spine <20 degrees Gaenslen's Test positive Kiera test: positive right side / left side Thigh Thrust Test Sacral Thrust Test Imaging: MRI non contrast lumbar spine from 09/02/22 reviewed Assessment/ Plan : L4-L5 radiculopathy Recommendation of medication management. UDS collected 07/27/24. Opiate/ narcotic agreement signed 06/01/24 . [place] 5/325gm #60 1 RF. Use, side effects, adverse reactions, safe storage discussed. All questions answered. I have spent greater than 30 minutes on patient care today. Dr Reyna was available by phone for the evaluation of this patient. The time was used to review the medical records including relevant urine studies and Prescription history (MAPs), review of the available imaging, evaluation and examination of the patient, coordination of care with the medical staff and if applicable referring physicians, as well as creation of the medical record PQRS Narrative: Smoking Status Never smoker Hx Alcohol Use (MH) No Home Medications: Ambulatory Orders ALPRAZolam [Xanax] 0.5 mg PO DAILY PRN 09/23/18 Rivaroxaban [Xarelto] 20 mg PO 1700 09/23/18 Atorvastatin [Lipitor] 40 mg PO HS 07/08/19 Omeprazole [PriLOSEC] 20 mg PO AC-BRKFST 07/08/19 Aspirin 81 mg PO DAILY 07/12/19 Acetaminophen [Tylenol Extra Strength] 500 - 650 mg PO DIRECTED PRN 04/01/21 Famotidine [Pepcid] 20 mg PO BID 04/01/21 HYDROcodone/APAP 5-325MG [[place] 5-325] 1 tab PO BID PRN 30 Days #60 tab 06/01/24 HYDROcodone/APAP 5-325MG [[place] 5-325] 1 tab PO BID PRN 30 Days #60 tab 06/01/24 HYDROcodone/APAP 5-325MG [[place] 5-325] 1 tab PO BID PRN 7 Days #14 tab 06/22/24 Controlled Substance Measures - Controlled Substance Measures Is patient prescribed a controlled substance at discharge?: Yes When asked, does pt state using other controlled substances?: No If prescribed controlled substance>3 days was MAPS reviewed?: Yes
== END ==
LOC: PNWHC3 10:46
PROVIDERS: ATTEND Specialist
DX: M47.26 Other spondylosis with radiculopathy, lumbar region (principal); Z88.1 Allergy status to other antibiotic agents; Z88.8 Allergy status to other drugs, medicaments and biological substances; Z88.2 Allergy status to sulfonamides; Z91.011 Allergy to milk products
CPT/HCPCS: 80307; G0463; 99211

== ENCOUNTER → 2024-11-10 | Outpatient (CLI) | payer MEDICARE, BC ==
[2024-11-10 10:17] LABS: Basophils # (A) 0.05 X 10*3/uL (0.00-0.10); Basophils % (A) 0.5 %; Eosinophils # (A) 0.16 X 10*3/uL (0.04-0.35); Eosinophils % (A) 1.6 %; HCT 38.2 % (37.2-46.3); HGB 11.4 g/dL (12.0-15.0); Lymphocytes # (A) 1.96 X 10*3/uL (0.90-5.00); Lymphocytes % (A) 19.7 %; MCH 26.3 pg (27.0-32.0); MCHC 29.8 g/dL (32.0-37.0); Mean Platelet Volume 10.4 FL (9.5-12.2); Monocytes # (A) 1.32 X 10*3/uL (0.20-1.00); Monocytes % (A) 13.3 %; NRBC Per 100 WBC 0 X 10*3/uL (0.00-0.01); Neutrophils # (A) 6.42 X 10*3/uL (1.80-7.70); Neutrophils % (A) 64.6 %; Platelet Count 387 X 10*3/uL (140-440); RBC 4.34 X 10*6/uL (4.10-5.20); RDW 16.6 % (11.5-14.5); WBC 9.94 X 10*3/uL (4.50-10.00)
[2024-11-10 11:19] LABS: ALT 21 U/L (8-44); AST 22 U/L (13-35); Alkaline Phosphatase 76 U/L (41-126); Blood Urea Nitrogen 24.3 mg/dL (9.0-27.0); Calcium 9.8 mg/dL (8.7-10.3); Carbon Dioxide 26.6 mmol/L (21.6-31.8); Chloride 104 mmol/L (96-109); Chol/HDL Ratio 2.87 Ratio; Globulin 2.5 g/dL (1.6-3.3); Glucose 115 mg/dL (70-110); LDL Cholesterol,Calculated 92.4 mg/dL (0.0-131.0); Potassium 4.3 mmol/L (3.5-5.5); Sodium 143 mmol/L (135-145); Total Bilirubin 0.2 mg/dL (0.3-1.2); Total Protein 6.5 g/dL (6.2-8.2)
[2024-11-10 11:20] LABS: Bilirubin, Conjugated <0.20 mg/dL (0.20-0.40); Bilirubin,Unconjugated >0 mg/dL (0.20-1.00)
== END | disposition home or self-care (01) ==
LOC: LABWHC1 06:50
PROVIDERS: ATTEND Internal Medicine Critical Care Medicine
DX: Z00.00 Encounter for general adult medical examination without abnormal findings (principal); I10 Essential (primary) hypertension; E78.5 Hyperlipidemia, unspecified; E55.9 Vitamin D deficiency, unspecified; R53.83 Other fatigue; R53.1 Weakness
CPT/HCPCS: 36415; 80053; 80061; 82248; 82306; 83036; 84439; 84443; 85025

== ENCOUNTER → 2024-11-23 | Outpatient (CLI) | payer MEDICARE, BC ==
[2024-11-23 11:00] VITALS: BP 125/58; PULSE 82; RESP 16
--- NOTE | 2024-11-23 15:30 | P.PAINPG ---
Objective - Vital Signs Vital signs: Vital Signs Temp Pulse 82 11/23/24 10:57 Resp 16 11/23/24 10:57 BP 125/58 11/23/24 10:57 Pulse Ox 97 11/23/24 10:57 FiO2 Intake & Output 11/22/24 11/23/24 11/23/24 18:59 06:59 18:59 Weight 66.678 kg PQRS Measure Charge Sheet Mode of Arrival: Wheelchair Comment: HISTORY OF PRESENT ILLNESS: A 84 yr old wheelchair bound female w at side presents today w severe and chronic LBP > secondary to radiculopathy, spondylosis and facet arthropathy without myelopathy for evaluation. Pt states pain level is provoked at 8 /10 in intensity, constant, localized in the lower lumbar spine, predominantly axial, achy in character w occasional shooting pain towards the back of the LEs. Pain is provoked by walking/ standing for periods > 5 min. Pain is alleviated by PT x 6 wks (Ankle) which ended in 2022, chiropractic treatments weekly since Feb 2024, heat, medications, topical, repositioning and rest . Interventional procedures include Medications include [place] 5/325mg #60, Tyl Arth REVIEW OF ORGAN SYSTEMS: CONSTITUTIONAL: No fevers or chills. No recent weight loss. NEUROLOGICAL: + numbness and tingling along the distal extremities. No seizure disorders or headaches. MUSCULOSKELETAL: + pain PSYCHIATRIC: Denies current depression or suicidal thoughts. Physical Examinations : Constitutional : Cooperative , not in acute distress . Neurologic : Cranial nerve II to XII intact. No focal neurological deficits. Psychiatric : alert & oriented x 3. Matching mood & appropriate affect. Judgment & insight intact. Musculoskeletal : Cervical Spine Motor strength in the deltoid and biceps: Normal right side. Normal Left side Motor strength biceps and the wrist extensors: Normal right side . Normal left side Motor strength in the triceps muscle: Normal right side. Normal left side Deep tendon reflexes: Normal at the biceps. Normal at Brachioradialis. Normal at triceps Vertebral body tenderness to deep palpation over Cervical facet loading test: positive bilaterally Spurling test: positive bilaterally Neck distraction test: positive bilaterally Marium sign: positive bilaterally Lumbar spine Motor strength lower extremities ,thigh and legs 5/5 Right side , 5/5 Left side Deep tendon reflexes : Normal Knee Jerk. Normal Ankle Jerk Vertebral body tenderness over Ferrer Test positive L4-L5 Lumbar facet Loading Test: positive Right / positive Left Range of motion of the lumbar spine Flexion 30 degrees, extension 10 degrees Straight Leg Raise test: Left/ Right positive at degrees Kiera test: positive right / positive left. Severe tenderness over the Sacroiliac joint on the Right / Left sides Gaenslen test: positive bilaterally Seated flexion test: positive bilaterally. Sacral spine : Severe tenderness over the Sacroiliac joint: right side / left side Range of motion: Flexion of the lumbar spine <60 degrees Range of motion: Extension of the lumbar spine <20 degrees Gaenslen's Test positive Kiera test: positive right side / left side Thigh Thrust Test Sacral Thrust Test Imaging: MRI non contrast lumbar spine from 09/02/22 reviewed Assessment/ Plan : L4-L5 radiculopathy Recommendation of medication management. UDS from 07/27/24 reviewed and consist ent. Opiate/ narcotic agreement signed 06/01/24. [place] 5/325gm #60 1 RF. Use, side effects, adverse reactions, safe storage discussed. All questions answered. I have spent greater than 30 minutes on patient care today. Dr Reyna was available by phone for the evaluation of this patient. The time was used to review the medical records including relevant urine studies and Prescription history (MAPs), review of the available imaging, evaluation and examination of the patient, coordination of care with the medical staff and if applicable referring physicians, as well as creation of the medical record - Pain Location Bilateral Lower Back Non-Pharmacological Interventions: Chiropractic Treatment, Heat, Inactivity, Physical Therapy, Position/Reposition, Relaxation Technique Pharmacological Interventions: PRN Medication, Scheduled Medication, Topical Medication PQRS Narrative: Smoking Status Never smoker Narcotic Agreement Date Signed 06/01/24 Blood Pressure 125/58 Pain Intensity [Bilateral 7 Lower Back] Scale Used Numeric (1 - 10) Hx Alcohol Use (MH) No Home Medications: Ambulatory Orders ALPRAZolam [Xanax] 0.5 mg PO DAILY PRN 09/23/18 Rivaroxaban [Xarelto] 20 mg PO 1700 09/23/18 Atorvastatin [Lipitor] 40 mg PO HS 07/08/19 Omeprazole [PriLOSEC] 20 mg PO AC-BRKFST 07/08/19 Aspirin 81 mg PO DAILY 07/12/19 Acetaminophen [Tylenol Extra Strength] 500 - 650 mg PO DIRECTED PRN 04/01/21 Famotidine [Pepcid] 20 mg PO BID 04/01/21 HYDROcodone/APAP 5-325MG [[place] 5-325] 1 tab PO BID PRN 30 Days #60 tab 09/28/24 HYDROcodone/APAP 5-325MG [[place] 5-325] 1 tab PO BID PRN 30 Days #60 tab 09/28/24 Controlled Substance Measures - Controlled Substance Measures Is patient prescribed a controlled substance at discharge?: Yes When asked, does pt state using other controlled substances?: No If prescribed controlled substance>3 days was MAPS reviewed?: Yes
== END ==
LOC: PNWHC3 10:34
PROVIDERS: ATTEND Specialist
DX: M54.16 Radiculopathy, lumbar region (principal); G89.4 Chronic pain syndrome; Z91.018 Allergy to other foods; Z88.8 Allergy status to other drugs, medicaments and biological substances; Z88.2 Allergy status to sulfonamides; Z88.5 Allergy status to narcotic agent
CPT/HCPCS: 99211

== ENCOUNTER → 2025-03-15 | Outpatient (CLI) | payer MEDICARE, BC ==
[2025-03-15 11:06] VITALS: BP 130/55; PULSE 72; RESP 16; TEMP 98.2
--- NOTE | 2025-03-15 15:58 | P.PAINPG ---
PQRS Measure Charge Sheet Comment: HISTORY OF PRESENT ILLNESS: A 84 yr old wheelchair bound female w at side presents today w severe and chronic LBP > secondary to radiculopathy, spondylosis and facet arthropathy without myelopathy for evaluation. Pt states pain level is provoked at 8 /10 in intensity, constant, localized in the lower lumbar spine, predominantly axial, achy in character w occasional shooting pain towards the back of the LEs. Pain is provoked by walking/ standing for periods > 5 min. Pain is alleviated by PT x 6 wks (Ankle) which ended in 2022, chiropractic treatments weekly since Feb 2024, heat, medications, topical, repositioning and rest . Interventional procedures include Medications include [place] 7.5/325mg #60, Tyl Arth REVIEW OF ORGAN SYSTEMS: CONSTITUTIONAL: No fevers or chills. No recent weight loss. NEUROLOGICAL: + numbness and tingling along the distal extremities. No seizure disorders or headaches. MUSCULOSKELETAL: + pain PSYCHIATRIC: Denies current depression or suicidal thoughts. Physical Examinations : Constitutional : Cooperative , not in acute distress . Neurologic : Cranial nerve II to XII intact. No focal neurological deficits. Psychiatric : alert & oriented x 3. Matching mood & appropriate affect. Judgment & insight intact. Musculoskeletal : Cervical Spine Motor strength in the deltoid and biceps: Normal right side. Normal Left side Motor strength biceps and the wrist extensors: Normal right side . Normal left side Motor strength in the triceps muscle: Normal right side. Normal left side Deep tendon reflexes: Normal at the biceps. Normal at Brachioradialis. Normal at triceps Vertebral body tenderness to deep palpation over Cervical facet loading test: positive bilaterally Spurling test: positive bilaterally Neck distraction test: positive bilaterally Marium sign: positive bilaterally Lumbar spine Motor strength lower extremities ,thigh and legs 5/5 Right side , 5/5 Left side Deep tendon reflexes : Normal Knee Jerk. Normal Ankle Jerk Vertebral body tenderness over Ferrer Test positive L4-L5 Lumbar facet Loading Test: positive Right / positive Left Range of motion of the lumbar spine Flexion 30 degrees, extension 10 degrees Straight Leg Raise test: Left/ Right positive at degrees Kiera test: positive right / positive left. Severe tenderness over the Sacroiliac joint on the Right / Left sides Gaenslen test: positive bilaterally Seated flexion test: positive bilaterally. Sacral spine : Severe tenderness over the Sacroiliac joint: right side / left side Range of motion: Flexion of the lumbar spine <60 degrees Range of motion: Extension of the lumbar spine <20 degrees Gaenslen's Test positive Kiera test: positive right side / left side Thigh Thrust Test Sacral Thrust Test Imaging: MRI non contrast lumbar spine from 09/02/22 reviewed Assessment/ Plan : L4-L5 radiculopathy Recommendation of medication management. Blood tox screen 03/15/25. Opiate/ narcotic agreement signed 06/01/24. [place] 7.5/325gm #60 w RF. Use, side effects, adverse reactions, safe storage discussed. All questions answered. I have spent greater than 30 minutes on patient care today. Dr Reyna was available by phone for the evaluation of this patient. The time was used to review the medical records including relevant urine studies and Prescription history (MAPs), review of the available imaging, evaluation and examination of the patient, coordination of care with the medical staff and if applicable referring physicians, as well as creation of the medical record - Pain Location Bilateral Lower Back Non-Pharmacological Interventions: Inactivity Pharmacological Interventions: PRN Medication, Scheduled Medication, Topical Medication PQRS Narrative: Smoking Status Never smoker Narcotic Agreement Date Signed 06/01/24 Hx Alcohol Use (MH) No Home Medications: Ambulatory Orders ALPRAZolam [Xanax] 0.5 mg PO DAILY PRN 09/23/18 Rivaroxaban [Xarelto] 20 mg PO 1700 09/23/18 Atorvastatin [Lipitor] 40 mg PO HS 07/08/19 Omeprazole [PriLOSEC] 20 mg PO AC-BRKFST 07/08/19 Aspirin 81 mg PO DAILY 07/12/19 Acetaminophen [Tylenol Extra Strength] 500 - 650 mg PO DIRECTED PRN 04/01/21 Famotidine [Pepcid] 20 mg PO BID 04/01/21 HYDROcodone/APAP 7.5-325MG [[place] 7.5-325] 1 tab PO BID PRN 30 Days #60 tab 03/15/25 HYDROcodone/APAP 7.5-325MG [[place] 7.5-325] 1 tab PO BID PRN 30 Days #60 tab 03/15/25 Controlled Substance Measures - Controlled Substance Measures Is patient prescribed a controlled substance at discharge?: Yes When asked, does pt state using other controlled substances?: No If prescribed controlled substance>3 days was MAPS reviewed?: Yes
== END ==
LOC: PNWHC3 10:23
PROVIDERS: ATTEND Specialist
DX: M54.16 Radiculopathy, lumbar region (principal); Z88.1 Allergy status to other antibiotic agents; Z88.2 Allergy status to sulfonamides; Z88.4 Allergy status to anesthetic agent; Z91.011 Allergy to milk products; Z88.8 Allergy status to other drugs, medicaments and biological substances
CPT/HCPCS: 99211

== ENCOUNTER → 2025-03-15 | Outpatient (CLI) | payer MEDICARE, BC ==
[2025-03-16 06:06] LABS: Serum Amphetamine Negative; Serum Barbiturates Negative; Serum Benzodiazepine Negative; Serum Cocaine Negative; Serum Methadone Negative; Serum Opiates Negative; Serum Phencyclidine Negative; Serum Propoxyphene Negative; Serum THC (Cannabis) Negative
== END | disposition home or self-care (01) ==
LOC: LABWHC1 11:25
PROVIDERS: ATTEND Specialist
DX: Z02.83 Encounter for blood-alcohol and blood-drug test (principal)
CPT/HCPCS: 36415; 80307